=== PATIENT | male | born 1995 | race African-American/Black ===

== ENCOUNTER 2019-11-15 06:21 | Inpatient (IN) | payer OTHER ==
[~2019-11-15] VITALS: Ht 182.9 cm; Wt 69.4 kg
[2019-11-15 06:22] VITALS: BP 90/28
[2019-11-15] MEDS ORDERED: FOLIC ACID1 MG PO (06:27)
[2019-11-15] MEDS ORDERED: OXYCODONE HCL5 MG PO (06:27)
[2019-11-15] MEDS ORDERED: ZANAFLEX6 MG PO (06:28)
[2019-11-15] MEDS ORDERED: VITAMIN E1000 UNIT (06:29)
[2019-11-15] MEDS ORDERED: HYDREA 500 MG500 M1 PO (06:29)
[2019-11-15 07:13] LABS: CREATININE 1.1 mg/dL (0.7-1.3); POTASSIUM 4.2 mmol/L (3.5-5.1)
[2019-11-15 07:14] LABS: HEMOGLOBIN 9.5 gm/dL (14.0-18.0); MCH 30.6 pg (26.0-34.0); MCHC 33.8 g/dL (28.0-37.0); MCV 90.6 fL (80.0-100.0); PLATELET COUNT 344 thou/uL (150-400); RBC 3.09 mil/uL (4.50-6.00); RDW 18.8 % (10.5-14.5); WBC 21.2 thou/uL (4.0-11.0)
[2019-11-15 07:16] LABS: ABSOLUTE RETIC COUNT 0.2093 10^6/uL; OBSERVED RETIC COUNT 6.77 % (0.6-2.6)
[2019-11-15 07:19] LABS: ALBUMIN 4.3 g/dL (3.4-5.0); TOTAL BILIRUBIN 3.2 mg/dL (<0.1-1.0); TOTAL PROTEIN 7.2 g/dL (6.4-8.2)
[2019-11-15 07:47] LABS: ABSOLUTE NEUTROPHILS 15.7 thou/uL (1.4-8.2); ANISOCYTOSIS 1+; PLATELET ESTIMATE NORMAL
[2019-11-15 07:55] LABS: URINE BILIRUBIN NEGATIVE (Negative); URINE BLOOD NEGATIVE (Negative); URINE CLARITY CLEAR; URINE COLOR YELLOW; URINE GLUCOSE-RANDOM* NEGATIVE (Negative); URINE KETONES NEGATIVE (Negative); URINE LEUKOCYTES-REFLEX NEGATIVE (Negative); URINE NITRITE-REFLEX NEGATIVE (Negative); URINE PROTEIN (DIPSTICK) NEGATIVE (Negative)
[2019-11-15 08:11] LABS: AMP/METHAMP Negative (Negative); BARBITURATES Negative (Negative); BENZODIAZEPINES Negative (Negative); COCAINE Negative (Negative); METHADONE Negative (Negative); OPIATES POSITIVE (Negative); PCP Negative (Negative)
[2019-11-15 08:55] VITALS: BP 110/62
--- NOTE | 2019-11-15 09:00 | NUR ---
FIRST ATTEMPT TO CALL REPORT [id number]
--- NOTE | 2019-11-15 09:25 | NUR ---
Attempted to call report for patient. Hand off toll sent at 0850. 1st call attempt made approx 09:00 by Elisha HODGSON. Attmepted to give report at this time, told that RN not available. Asked for supervisor in charge. Charge stated she could not take report either. Placed on hold for several minutes, unable to reach staff. Called Oil Plant Operator to notify.
[2019-11-15 09:44] VITALS: BP 108/68
[2019-11-15 09:52] VITALS: BP 122/62
[2019-11-15 14:45] VITALS: BP 123/70
--- NOTE | 2019-11-15 19:45 | NUR ---
A/O, cooperative and pleasant. complains of generalized pain, pain medication given and worked. no n/v. afebrile. Assessment without abnormalities expect previously noted.
[2019-11-15 20:05] VITALS: BP 109/54
--- NOTE | 2019-11-16 02:08 | NUR ---
ASSUMED PT CARE AROUND 1914. AXOX4. INDEPENDENT WITH ADLs. PERSISTENT PAIN D/T SICKLE CELL CRISIS. PAIN TX PER MD ORDER. NO S/S ACUTE DISTRESS NOTED OR REPORTED AT THIS TIME. WILL CONT TO MONITOR FOR ANY CHANGES IN CONDITION.
[2019-11-16 05:10] VITALS: BP 133/74
[2019-11-16 06:04] LABS: HEMATOCRIT 23.5 % (42.0-52.0); HEMOGLOBIN 8.2 gm/dL (14.0-18.0); MCH 31.3 pg (26.0-34.0); MCHC 34.9 g/dL (28.0-37.0); MCV 89.7 fL (80.0-100.0); RBC 2.61 mil/uL (4.50-6.00); RDW 19.2 % (10.5-14.5); WBC 19.6 thou/uL (4.0-11.0)
[2019-11-16 08:54] VITALS: BP 122/56
--- NOTE | 2019-11-16 10:26 | NUR ---
ASSUMED CARE AT 0700. PT ALERT AND ORIENTED, C/O PAIN. VSSA/RA. TOLERATING DIET. IVF INFUSING WITHOUT ISSUES. WILL GIVE PRN PAIN MEDS ORDERED. WILL CONTINUE TO MONITOR
--- NOTE | 2019-11-16 10:37 | NUR ---
ASSUMED CARE AT 0700. PT ALERT AND ORIENTED. NO COMPLIANTS AT THIS TIME. VSS TEMP 100.4. RA. TOLERATING PO, ABD DISTENDED. BLOOD SUGARS HIGH. PIV SL. DRESSING DRY AND INTACT WITH MINIMAL DRAINAGE. WILL MONITOR AND CHANGE DRESSING TODAY. PRN MEDS GIVEN ORDERED. PT ABLE TO WALK WITH WALKER. WILL CONTINUE TO MONITOR
[2019-11-16 15:56] VITALS: BP 115/59
[2019-11-16 20:16] VITALS: BP 118/63
[2019-11-17 05:54] LABS: HEMATOCRIT 25.4 % (42.0-52.0); HEMOGLOBIN 8.9 gm/dL (14.0-18.0); MCH 31.3 pg (26.0-34.0); MCHC 34.9 g/dL (28.0-37.0); MCV 89.6 fL (80.0-100.0); RBC 2.83 mil/uL (4.50-6.00); RDW 19.5 % (10.5-14.5); WBC 17.7 thou/uL (4.0-11.0)
[2019-11-17 06:15] LABS: ALBUMIN 3.9 g/dL (3.4-5.0); CALCIUM 8.9 mg/dL (8.5-10.1); CREATININE 0.8 mg/dL (0.7-1.3); POTASSIUM 3.8 mmol/L (3.5-5.1); TOTAL BILIRUBIN 3.4 mg/dL (<0.1-1.0); TOTAL PROTEIN 7.2 g/dL (6.4-8.2)
[2019-11-17 06:21] VITALS: BP 115/71
--- NOTE | 2019-11-17 06:23 | NUR ---
patient aox4 makes needs known. patient calm and cooperative with care and meds.patient in bed awake at this time no s/s of pain or discomfort. will continue to monitor pain.
[2019-11-17 07:24] VITALS: BP 113/62
--- NOTE | 2019-11-17 09:43 | NUR ---
ASSUMED CARE AT 0700. PT ALERT AND ORIENTED, NOC RN STATES PT HASN'T SLEPT LAST NOC. VSSA/RA. NO COMPLAINTS AT THIS TIME. PIV INFUSING WITHOUT ISSUES. WILL MONITOR PAIN AND GIVE PRN PAIN MEDS ORDERED. PT IS UAL. WILL CONTINUE TO MONITOR
[2019-11-17 10:35] VITALS: BP 113/62
== END 2019-11-17 11:03 | disposition home or self-care (01) | DRG 812 ==
LOC: ER 06:21 → EROBS 08:32 → 4W 09:40
PROVIDERS: Emergency Medicine; ADMIT Hospitalist
DX: D57.00 Hb-SS disease with crisis, unspecified (principal); F12.90 Cannabis use, unspecified, uncomplicated; D72.829 Elevated white blood cell count, unspecified; E86.0 Dehydration; Z88.6 Allergy status to analgesic agent; Z88.8 Allergy status to other drugs, medicaments and biological substances; Z79.899 Other long term (current) drug therapy
CPT/HCPCS: 10040

== ENCOUNTER 2019-12-21 11:18 | Inpatient (IN) | payer OTHER ==
[~2019-12-21] VITALS: Ht 182.9 cm; Wt 70.3 kg
[~2019-12-21 11:18] MED LIST: FOLIC ACID1 MG PO; HYDREA 500 MG500 M1 PO; OXYCODONE HCL5 MG PO; VITAMIN E1000 UNIT; ZANAFLEX6 MG PO
[2019-12-21 12:07] LABS: CALCIUM 8.9 mg/dL (8.5-10.1); CREATININE 0.9 mg/dL (0.7-1.3); POTASSIUM 4.3 mmol/L (3.5-5.1)
[2019-12-21 12:10] LABS: ABSOLUTE NEUTROPHILS 4.5 thou/uL (1.4-8.2); ABSOLUTE RETIC COUNT 0.1985 10^6/uL; BASOPHILS 1.6 % (0.0-2.0); EOSINOPHILS 3.5 % (0.0-3.0); HEMATOCRIT 26.1 % (42.0-52.0); HEMOGLOBIN 9.2 gm/dL (14.0-18.0); LYMPHOCYTES 39.2 % (24.0-44.0); MCH 32.5 pg (26.0-34.0); MCHC 35.2 g/dL (28.0-37.0); MCV 92.4 fL (80.0-100.0); MONOCYTES 11.3 % (1.0-8.0); OBSERVED RETIC COUNT 7.03 % (0.6-2.6); PLATELET COUNT 327 thou/uL (150-400); POLYS 44.4 % (36.0-66.0); RBC 2.82 mil/uL (4.50-6.00); RDW 20.3 % (10.5-14.5); WBC 10.1 thou/uL (4.0-11.0)
[2019-12-21 12:12] LABS: TOTAL BILIRUBIN 1.9 mg/dL (0.2-1.0); TOTAL PROTEIN 6.9 g/dL (6.4-8.2)
[2019-12-21 13:12] LABS: ANISOCYTOSIS 2+
[2019-12-21 13:13] LABS: POLYCHROMASIA SLIGHT; TARGET CELLS OCCASIONAL
[2019-12-21 15:33] VITALS: BP 108/67
[2019-12-21 16:03] VITALS: BP 102/68
[2019-12-21 17:40] VITALS: BP 106/65
--- NOTE | 2019-12-21 18:01 | NUR ---
PT CAME UP FOR ER, AOX4, VSS. PT IS UP AD RYDER, TOLERATING DIET,IV MEDS GIVEN. PT RECEIVED DILUDID IN R FA IV. PT REPORTS HIS PAIN IS NOT CONTROLLED. PT RATES PAIN 8/10. NURSE EDUCATED PT KITCHEN SUPERVISOR LIGHT, URINAL AT BEDSIDE IN CASE. IV FLUIDS ARE RUNNING PER ORDER. WILL CONTINUE TO MONITOR.
[2019-12-21 19:05] VITALS: BP 107/61
[2019-12-22 04:05] VITALS: BP 106/53
--- NOTE | 2019-12-22 04:57 | NUR ---
RECEIVED CARE OF THIS PATIENT AT 1900. C/O PAIN. MED GIVEN. PAIN APPEARS TO BE DROPPING IN INTENSITY. PATIENT UP AD RYDER. SLEPT OFF AND ON DURING NIGHT.
[2019-12-22 05:57] LABS: HEMATOCRIT 24.8 % (42.0-52.0); HEMOGLOBIN 8.4 gm/dL (14.0-18.0); MCH 31.5 pg (26.0-34.0); MCHC 33.9 g/dL (28.0-37.0); MCV 92.9 fL (80.0-100.0); RBC 2.67 mil/uL (4.50-6.00); RDW 19.8 % (10.5-14.5); WBC 12.3 thou/uL (4.0-11.0)
[2019-12-22 07:30] VITALS: BP 98/61
--- NOTE | 2019-12-22 11:28 | NUR ---
ASSUMED CARE AT 0700, SHIFT ASSESSMENT DONE, MEDS GIVEN, REPORTED PAIN, PRN PAIN MEDS GIVEN WITH SOME RELIEF. UP AD RYDER, ROOM AIR. DISCHARGE ORDER RECEIVED, ANTICIPATING DC THIS AFTERNOON.
[2019-12-22 11:52] VITALS: BP 98/61
== END 2019-12-22 12:07 | disposition home or self-care (01) | DRG 812 ==
LOC: ER 11:18 → EROBS 15:16 → 4S 16:03
PROVIDERS: Physician Assistant; ADMIT Hospitalist; ATTEND Hospitalist
DX: D57.00 Hb-SS disease with crisis, unspecified (principal); E86.0 Dehydration; Z88.6 Allergy status to analgesic agent; Z88.8 Allergy status to other drugs, medicaments and biological substances; Z79.899 Other long term (current) drug therapy
CPT/HCPCS: 10195

== ENCOUNTER 2020-01-01 21:08 | Emergency (ER) | payer OTHER ==
[~2020-01-01] VITALS: Ht 182.9 cm; Wt 70.3 kg
[2020-01-01 23:42] LABS: HEMATOCRIT 26.7 % (42.0-52.0); HEMOGLOBIN 9.5 gm/dL (14.0-18.0); MCH 32.2 pg (26.0-34.0); MCHC 35.4 g/dL (28.0-37.0); PLATELET COUNT 344 thou/uL (150-400); RBC 2.94 mil/uL (4.50-6.00); RDW 18.5 % (10.5-14.5); WBC 10.5 thou/uL (4.0-11.0)
[2020-01-01 23:47] LABS: ABSOLUTE RETIC COUNT 0.2382 10^6/uL; OBSERVED RETIC COUNT 8.07 % (0.6-2.6)
[2020-01-01 23:56] LABS: CALCIUM 9.1 mg/dL (8.5-10.1); POTASSIUM 3.9 mmol/L (3.5-5.1)
[2020-01-02 00:03] LABS: ALBUMIN 4.2 g/dL (3.4-5.0); DIRECT BILIRUBIN 0.3 mg/dL (<0.1-0.2); TOTAL PROTEIN 6.9 g/dL (6.4-8.2)
[2020-01-02 00:10] LABS: ABSOLUTE NEUTROPHILS 3.9 thou/uL (1.4-8.2); ANISOCYTOSIS 2+
[2020-01-02 00:12] LABS: LARGE PLATELETS OCCASIONAL; NUCLEATED RBCS 3 /100WBC; POLYCHROMASIA 1+
[2020-01-02 01:37] VITALS: BP 104/56
== END 2020-01-02 01:40 | disposition home or self-care (01) ==
LOC: ER 21:08
PROVIDERS: Emergency Medicine
DX: D57.1 Sickle-cell disease without crisis (principal); Z88.5 Allergy status to narcotic agent; Z88.8 Allergy status to other drugs, medicaments and biological substances

== ENCOUNTER 2020-01-08 17:45 | Emergency (ER) | payer OTHER ==
[~2020-01-08] VITALS: Ht 182.9 cm; Wt 70.3 kg
[2020-01-08] MEDS ORDERED: XTAMPZA ER36 MG PO (17:56)
[2020-01-08 20:15] LABS: URINE BILIRUBIN NEGATIVE (Negative); URINE BLOOD NEGATIVE (Negative); URINE CLARITY CLEAR; URINE COLOR YELLOW; URINE GLUCOSE-RANDOM* NEGATIVE (Negative); URINE KETONES NEGATIVE (Negative); URINE LEUKOCYTES-REFLEX NEGATIVE (Negative); URINE NITRITE-REFLEX NEGATIVE (Negative); URINE PROTEIN (DIPSTICK) NEGATIVE (Negative); URINE SPECIFIC GRAVITY 1.015 (1.005-1.035); URINE UROBILINOGEN 0.2 E.U./dl (0.2-1.0)
[2020-01-08 20:24] LABS: AMP/METHAMP Negative (Negative); BARBITURATES Negative (Negative); BENZODIAZEPINES Negative (Negative); COCAINE Negative (Negative); METHADONE Negative (Negative); OPIATES POSITIVE (Negative); PCP Negative (Negative)
[2020-01-08 22:14] VITALS: BP 111/55
== END 2020-01-08 22:20 | disposition home or self-care (01) ==
LOC: ER 17:45
PROVIDERS: Emergency Medicine
DX: D57.00 Hb-SS disease with crisis, unspecified (principal); Z88.5 Allergy status to narcotic agent; Z88.8 Allergy status to other drugs, medicaments and biological substances; Z79.899 Other long term (current) drug therapy

== ENCOUNTER 2020-01-16 12:03 | Emergency (ER) | payer OTHER ==
[~2020-01-16] VITALS: Ht 182.9 cm; Wt 70.3 kg
[~2020-01-16 12:03] MED LIST changes: +XTAMPZA ER36 MG PO
[2020-01-16 12:31] LABS: HEMOGLOBIN 8.5 gm/dL (14.0-18.0)
[2020-01-16 12:35] LABS: ABSOLUTE RETIC COUNT 0.3111 10^6/uL; CALCIUM 8.6 mg/dL (8.5-10.1); HEMATOCRIT 24.2 % (42.0-52.0); MCH 31.4 pg (26.0-34.0); MCHC 34.9 g/dL (28.0-37.0); MCV 89.8 fL (80.0-100.0); OBSERVED RETIC COUNT 11.54 % (0.6-2.6); PLATELET COUNT 385 thou/uL (150-400); POTASSIUM 3.8 mmol/L (3.5-5.1); RDW 21.4 % (10.5-14.5); WBC 9.8 thou/uL (4.0-11.0)
[2020-01-16 12:57] LABS: ABSOLUTE NEUTROPHILS 5.6 thou/uL (1.4-8.2); ANISOCYTOSIS 2+; PLATELET ESTIMATE NORMAL
[2020-01-16 15:04] VITALS: BP 108/66
--- NOTE | 2020-01-18 07:49 | EKG ---
[facility] [address] [place] [address] ELECTROCARDIOGRAM REPORT Name: ASAF RAMOS Room #: DEP [facility].#: [id number] Admission: 01/16/20 Attend Phys: Discharge: 01/16/20 Date of : [birth year] Report #: [id number] THIS REPORT FOR: cc: LENCHO - Valentina family physician/PCP LENCHO - No family physician/PCP Pietro Gonsalez MD [facility] THIS REPORT FOR: //name// [facility] ED Test Date: 2020-01-16 Test Time: 12:33:27 Pat Name: ASAF RAMOS Department: Room: Gender: Pet Adoption Counselor: [facility] : 1995 Requested By: Anupama Morrison Order Number: [id number] MD: Pietro Gonsalez Measurements Intervals [place] Rate: 68 P: 51 ME: 160 QRS: 28 QRSD: 100 T: 22 QT: 409 QTc: 436 Interpretive Statements Sinus rhythm Early repolarization, normal No previous ECG available for comparison Electronically Signed On 01-18-2020 7:49:04 CDT by Pietro Gonsalez [email or web address] <ELECTRONICALLY SIGNED> By: Pietro Gonsalez MD, [facility] 01/18/20 0749 1233 1233 Pietro Gonsalez MD, [facility] /EPI
== END 2020-01-16 15:13 | disposition home or self-care (01) ==
LOC: ER 12:03
PROVIDERS: Nurse Practitioner Family
DX: D57.1 Sickle-cell disease without crisis (principal); G89.29 Other chronic pain; Z88.5 Allergy status to narcotic agent; Z79.899 Other long term (current) drug therapy

== ENCOUNTER 2020-01-18 14:46 | Emergency (ER) | payer OTHER ==
[~2020-01-18] VITALS: Ht 182.9 cm; Wt 72.6 kg
[2020-01-18 15:25] LABS: HEMATOCRIT 23.6 % (42.0-52.0); HEMOGLOBIN 8.2 gm/dL (14.0-18.0); MCH 30.8 pg (26.0-34.0); MCHC 34.6 g/dL (28.0-37.0); MCV 88.8 fL (80.0-100.0); PLATELET COUNT 320 thou/uL (150-400); RBC 2.66 mil/uL (4.50-6.00); RDW 20.5 % (10.5-14.5); WBC 9.9 thou/uL (4.0-11.0)
[2020-01-18 15:31] LABS: ABSOLUTE RETIC COUNT 0.2611 10^6/uL; OBSERVED RETIC COUNT 9.78 % (0.6-2.6)
[2020-01-18 15:34] LABS: ANION GAP 8 mmol/L (7-16); BUN 6 mg/dL (7-18); CALCIUM 8.5 mg/dL (8.5-10.1); CHLORIDE 108 mmol/L (98-107); CO2 27 mmol/L (21-32); CREATININE 0.9 mg/dL (0.7-1.3); GLUCOSE 101 mg/dL (74-106); SODIUM 143 mmol/L (136-145)
[2020-01-18 15:44] LABS: ALBUMIN 3.7 g/dL (3.4-5.0); SGOT 41 U/L (15-37); SGPT 43 U/L (30-65); TOTAL BILIRUBIN 2.5 mg/dL (0.2-1.0); TOTAL PROTEIN 6.5 g/dL (6.4-8.2); TROPONIN-I <0.06 ng/mL (<0.06)
[2020-01-18 16:05] LABS: ABSOLUTE NEUTROPHILS 5.4 thou/uL (1.4-8.2); ANISOCYTOSIS 2+; NUCLEATED RBCS 1 /100WBC; PLATELET ESTIMATE NORMAL
[2020-01-18 18:59] VITALS: BP 113/77
--- NOTE | 2020-01-19 07:40 | EKG ---
[facility] [address] [place] [address] ELECTROCARDIOGRAM REPORT Name: ASAF RAMOS Room #: DEP [facility].#: [id number] Admission: 01/18/20 Attend Phys: Discharge: 01/18/20 Date of : [birth year] Report #: [id number] THIS REPORT FOR: cc: LENCHO - Valentina family physician/PCP LENCHO - Valentina family physician/PCP Pietro Gonsalez MD [facility] THIS REPORT FOR: //name// [facility] ED Test Date: 2020-01-18 Test Time: 15:06:32 Pat Name: ASAF RAMOS Department: Room: Gender: Household Personal Assistant: [facility] : 1995 Requested By: Mahesh Long Order Number: [id number] MD: Pietro Gonsalez Measurements Intervals [place] Rate: 83 P: 54 MA: 163 QRS: 21 QRSD: 92 T: 16 QT: 386 QTc: 454 Interpretive Statements Sinus rhythm ST elev, probable normal early repol pattern Compared to ECG 01/16/2020 12:33:27 No significant change was found Electronically Signed On 01-19-2020 7:40:39 CDT by Pietro Gonsalez [email or web address] <ELECTRONICALLY SIGNED> By: Pietro Gonsalez MD, [facility] 01/19/20 0740 1506 1506 Pietro Gonsalez MD, [facility] /EPI
== END 2020-01-18 19:05 | disposition home or self-care (01) ==
LOC: ER 14:46
PROVIDERS: Physician Assistant
DX: D57.00 Hb-SS disease with crisis, unspecified (principal); Z79.899 Other long term (current) drug therapy; Z88.5 Allergy status to narcotic agent; Z88.8 Allergy status to other drugs, medicaments and biological substances

== ENCOUNTER 2020-01-29 12:19 | Emergency (ER) | payer OTHER ==
[~2020-01-29] VITALS: Ht 182.9 cm; Wt 70.3 kg
[2020-01-29 16:28] VITALS: BP 96/57
== END 2020-01-29 16:21 | disposition home or self-care (01) ==
LOC: ER 12:19
DX: D57.819 Other sickle-cell disorders with crisis, unspecified (principal); M79.651 Pain in right thigh; Z88.5 Allergy status to narcotic agent; Z91.013 Allergy to seafood; Z79.899 Other long term (current) drug therapy

== ENCOUNTER 2020-02-02 02:32 | Inpatient (IN) | payer OTHER ==
[2020-02-02] VITALS (8 sets, daily range): BP systolic 100–120; BP diastolic 52–72
[~2020-02-02] VITALS: Ht 182.9 cm; Wt 70.3 kg
[2020-02-02 02:59] LABS: HEMATOCRIT 22.5 % (42.0-52.0); HEMOGLOBIN 7.8 gm/dL (14.0-18.0); MCH 29.8 pg (26.0-34.0); MCHC 34.5 g/dL (28.0-37.0); MCV 86.5 fL (80.0-100.0); PLATELET COUNT 356 thou/uL (150-400); RBC 2.61 mil/uL (4.50-6.00); RDW 20.2 % (10.5-14.5); WBC 14.9 thou/uL (4.0-11.0)
[2020-02-02 03:07] LABS: ABSOLUTE RETIC COUNT 0.1944 10^6/uL; OBSERVED RETIC COUNT 7.46 % (0.6-2.6)
[2020-02-02 03:11] LABS: CALCIUM 8.4 mg/dL (8.5-10.1); POTASSIUM 3.9 mmol/L (3.5-5.1)
[2020-02-02 05:13] LABS: ABSOLUTE NEUTROPHILS 6.1 thou/uL (1.4-8.2); ANISOCYTOSIS 2+; NUCLEATED RBCS 1 /100WBC; POIKILOCYTOSIS 2+; SCHISTOCYTES FEW
[2020-02-02 05:14] LABS: PLATELET ESTIMATE NORMAL; POLYCHROMASIA 1+
--- NOTE | 2020-02-02 08:58 | NUR ---
Pt admitted from ED approx 0440 with Sickle cell crisis. A/OX4,VSS. C/o pain chest/back medicated per EMAR with some relief reported. Pt reports falling a week ago;fall safety reinforced and precautions implemented. Pt reminded to call for help before getting up. Has an abrassion on Right shoulder;cleansed and new dsg applied. IVF infusinf via Right wrist IV. Denies N/V on assessment.
--- NOTE | 2020-02-02 09:38 | EKG ---
[facility] [place] [address] ELECTROCARDIOGRAM REPORT Name: ASAF RAMOS Room #: 452- ADM IN M.R.#: [id number] Admission: 02/02/20 Attend Phys: Lacey López Discharge: Date of : [birth year] Report #: [id number] THIS REPORT FOR: cc: NO FAMILY PHYSICIAN or PCP NO FAMILY PHYSICIAN or PCP Pietro Gonsalez MD [facility] THIS REPORT FOR: //name// [facility] ED Test Date: 2020-02-02 Test Time: 03:07:18 Pat Name: ASAF RAMOS Department: Room: [facility] Gender: M Mail Carrier And Clerk: HARRY : 1995 Requested By: Andrei Corado Order Number: [id number] MD: Pietro Gonsalez Measurements Intervals [place] Rate: 84 P: 71 MT: 165 QRS: 37 QRSD: 96 T: 30 QT: 388 QTc: 459 Interpretive Statements Sinus rhythm ST elev, probable normal early repol pattern Compared to ECG 01/18/2020 15:06:32 No significant changes Electronically Signed On 02-02-2020 9:38:12 CDT by Pietro Gonsalez [email or web address] <ELECTRONICALLY SIGNED> By: Pietro Gonsalez MD, [facility] 02/02/20 0938 6 6 Pietro Gonsalez MD, [facility] /EPI
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
--- NOTE | 2020-02-02 12:30 | NUR ---
RD consult received for wt change and pt homeless, living in hotel. Admit with sickle cell crisis. Attempt to visit pt, resting, eyes closed and not participating in conversation. Shook head no when asked about wt loss and shook head no when asked if he ate breakfast. Wt records in [employer] show possible 5 lb loss since 10/2019=3% not signficant. BMI is 21, healthy. Will add Ensure Enlive 1x day until intake trends established and pt feeling up to conversation. Low nutrition risk
--- NOTE | 2020-02-02 14:20 | NUR ---
PT ADMITTED RELATED TO SICKLE CELL PAIN CRISIS, LEUKOCYTOSIS. CM REVIEWED CHART AND SPOKE WITH CARE TEAM. CM CALLED AND SPOKE WITH PT AT BEDSIDE THIS DAY. PT APPEARED TO BE A&O X4. CM ROLE INTRODUCED. PT INDICATED HE HAD BEEN STAYING IN A HOTEL WITH HIS SIG OTHER WITH NO STEPS TO ENTER AND NO STEPS INSIDE. 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 NO ASSISTIVE DEVICES. PT INDICATED HE SEES FLATCAR WHACKER JENNY LEE AT [facility]. HE INDICATED THAT HE HAD [place] MEDICAID AND IS PENDING FOR [place] MEDICAID. PT INDICATED HE PLANS TO RETURN TO HOTEL ONCE MEDICALLY STABLE. CM TO FOLLOW INDICATED WITH DC PLANNING.
--- NOTE | 2020-02-02 20:53 | NUR ---
Assumed pt care this am, pain is managed with medications partial relief noted and needed to be givne on the dot. IV fluids given and hydration encouranged. Pt is up ad barber, refused most of his meals and was on the bed for most of the shift. POC followed, endorsed tot he night nurse.
--- NOTE | 2020-02-03 02:58 | NUR ---
ASSUMED PT CARE AT APPROX 1915. PT IS A&O X4. VSS. IV IS IN LEFT FOREARM, FLUIDS RUNNING AT 125 MLS. PT COMPLAINS OF PAIN AT A 6 AND 9. PAIN MEDICATION ADMINISTERED. PT IS STEADY ON HIS FEET. PAIN MEDS ADMINISTERED. PT IS RESTING IN HIS BED. WILL CONTINUE TO MONITOR.
[2020-02-03 07:10] VITALS: BP 103/54
[2020-02-03 07:24] LABS: ABSOLUTE NEUTROPHILS 11.8 thou/uL (1.4-8.2); BASOPHILS 0.5 % (0.0-2.0); EOSINOPHILS 1.2 % (0.0-3.0); HEMATOCRIT 20.8 % (42.0-52.0); HEMOGLOBIN 7.2 gm/dL (14.0-18.0); LYMPHOCYTES 19.3 % (24.0-44.0); MCH 29.9 pg (26.0-34.0); MCHC 34.7 g/dL (28.0-37.0); MCV 86.3 fL (80.0-100.0); PLATELET COUNT 313 thou/uL (150-400); RBC 2.41 mil/uL (4.50-6.00); RDW 20.6 % (10.5-14.5); WBC 17.6 thou/uL (4.0-11.0)
[2020-02-03 07:47] LABS: CALCIUM 8.5 mg/dL (8.5-10.1); CREATININE 0.9 mg/dL (0.7-1.3); MAGNESIUM 1.8 mg/dL (1.8-2.4); POTASSIUM 3.8 mmol/L (3.5-5.1)
[2020-02-03 09:09] LABS: ALBUMIN 3.9 g/dL (3.4-5.0); DIRECT BILIRUBIN 0.4 mg/dL (<0.1-0.2); TOTAL BILIRUBIN 5.3 mg/dL (0.2-1.0); TOTAL PROTEIN 6.8 g/dL (6.4-8.2)
[2020-02-03 09:19] LABS: ANISOCYTOSIS 2+
[2020-02-03 09:20] LABS: POLYCHROMASIA OCCASIONAL
[2020-02-03 19:25] VITALS: BP 114/58
--- NOTE | 2020-02-03 20:23 | NUR ---
Assumed pt care this am. pain is better today trending down compared to yesterday, managed with medications partial relief is noted. IV fluids and medications are tolerated well. POC followed with no signs or verbalizations of distress. Endorsed to the night nurse. VS stable, seen by would care team.
--- NOTE | 2020-02-04 04:27 | NUR ---
Assumed pt care at 1900. A/OX4. Pt's Temp elevated at beginning of shift 101.7 medicated with Tylenol and effective 99.3. C/o pain non cardiac/abd medicated per EMAR with relief reported. Up with SBA/IV pole. IVF infusing via LFA w/o any problems. Wound picture of right shoulder taken and dressed with foam. Continent of B&B. Fall precauitons in place,reminded to call for help as needed.
[2020-02-04 06:12] LABS: ABSOLUTE RETIC COUNT 0.1941 10^6/uL; HEMATOCRIT 20.5 % (42.0-52.0); HEMOGLOBIN 7.1 gm/dL (14.0-18.0); MCH 30.1 pg (26.0-34.0); MCHC 34.4 g/dL (28.0-37.0); MCV 87.5 fL (80.0-100.0); OBSERVED RETIC COUNT 8.27 % (0.6-2.6); RBC 2.35 mil/uL (4.50-6.00); RDW 18.6 % (10.5-14.5); WBC 21.3 thou/uL (4.0-11.0)
[2020-02-04 06:41] LABS: ALBUMIN 3.9 g/dL (3.4-5.0); CALCIUM 8.8 mg/dL (8.5-10.1); POTASSIUM 3.9 mmol/L (3.5-5.1); TOTAL BILIRUBIN 6.4 mg/dL (0.2-1.0); TOTAL PROTEIN 7.2 g/dL (6.4-8.2)
[2020-02-04 07:55] VITALS: BP 104/60
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
[2020-02-04 12:02] LABS: URINE BILIRUBIN NEGATIVE (Negative); URINE BLOOD NEGATIVE (Negative); URINE CLARITY CLEAR; URINE COLOR YELLOW; URINE GLUCOSE-RANDOM* NEGATIVE (Negative); URINE KETONES NEGATIVE (Negative); URINE LEUKOCYTES-REFLEX NEGATIVE (Negative); URINE NITRITE-REFLEX NEGATIVE (Negative); URINE PROTEIN (DIPSTICK) NEGATIVE (Negative); URINE SPECIFIC GRAVITY <= 1.005 (1.005-1.035); URINE UROBILINOGEN 0.2 E.U./dl (0.2-1.0)
[2020-02-04 15:00] VITALS: BP 113/69
--- NOTE | 2020-02-04 15:16 | NUR ---
Assumed pt care at 7am.Assessment completed.vss. Pt has generalized bodyache related ss crisis.Pain shot given as ordered with relief.Dr Marcelino here,order noted.Piv unable to flush,iv team called for replacement.Urine collected and sent to lab as ordered.Pt in bed resting at present.Will continue to monitor.
[2020-02-04 19:34] VITALS: BP 105/65
--- NOTE | 2020-02-05 06:00 | NUR ---
Pt. rested quietly at intervals during the night when checked on during frequent rounds. He c/o generalized pain and pain meds given (see cpoe) with some relief noted. Up to the bathroom with standby assistance. Bed alarm is on.
[2020-02-05 06:11] LABS: MCH 30.5 pg (26.0-34.0); MCV 87.2 fL (80.0-100.0); RDW 18.3 % (10.5-14.5); WBC 17.6 thou/uL (4.0-11.0)
[2020-02-05 06:32] LABS: CALCIUM 8.5 mg/dL (8.5-10.1); CREATININE 0.9 mg/dL (0.7-1.3)
[2020-02-05 06:33] LABS: HEMATOCRIT 17.4 % (42.0-52.0); HEMOGLOBIN 6.1 gm/dL (14.0-18.0)
[2020-02-05 07:20] VITALS: BP 116/69
--- NOTE | 2020-02-05 15:16 | NUR ---
Pt in and out of bed to bathroom as needed. Assessment completed.vss.Pt hgb today was 6.[address] Dominguez and message left.Dr Marcelino notified on round and he said if pt needed blood transfusion,it will be taken care by Oncologist. Pain shot given q3h prn as ordered with relief.Pt in bed resting at present.Will continue to monitor.
--- NOTE | 2020-02-05 15:28 | NUR ---
PT'S PAIN STILL ISN'T WELL CONTROLLED AND CARE TEAM ARE CONTEMPLATING TRANSFUSING. IT IS ANTICIPATED THAT PT WILL LIKELY BE MEDICALLY STABLE TO DC HOME WITH NO NEEDS ONE MEDICALLY STABLE. SHOULD ANY DC NEEDS ARISE CM ABLE TO ASSIST.
[2020-02-05 19:43] VITALS: BP 106/59
--- NOTE | 2020-02-06 05:06 | NUR ---
PATIENT ALERT AND ORIENTED X4. UP WITH SBA IN ROOM. IVF INFUSING W/O COMPLICATION. NEW IV STARTED IN RIGHT HAND. MEDICATED WITH TYLENOL X2 DURING THE NIGHT FOR TEMP OF 99.9 AND 99.0 WITH GOOD RESULTS. GIVEN DILAUDID X1 AT TIME OF NOTE. WILL MONITOR. PLEASANT AND COOPERATIVE WITH CARE.
[2020-02-06 08:03] VITALS: BP 101/58
[2020-02-06 09:21] LABS: ABSOLUTE NEUTROPHILS 7.1 thou/uL (1.4-8.2); BASOPHILS 0.7 % (0.0-2.0); EOSINOPHILS 2.4 % (0.0-3.0); HEMATOCRIT 23.5 % (42.0-52.0); HEMOGLOBIN 7.5 gm/dL (14.0-18.0); LYMPHOCYTES 33.4 % (24.0-44.0); MCH 28.9 pg (26.0-34.0); MCHC 31.9 g/dL (28.0-37.0); MCV 90.5 fL (80.0-100.0); MONOCYTES 8.4 % (1.0-8.0); PLATELET COUNT 301 thou/uL (150-400); POLYS 55.1 % (36.0-66.0); RDW 19.5 % (10.5-14.5); WBC 12.9 thou/uL (4.0-11.0)
[2020-02-06 09:30] LABS: CALCIUM 8.6 mg/dL (8.5-10.1); CREATININE 0.7 mg/dL (0.7-1.3); POTASSIUM 3.5 mmol/L (3.5-5.1)
--- NOTE | 2020-02-06 14:35 | NUR ---
Assumed pt care at 7am.Assessment completed.vss.Pt requested for pain q3 for ss pain and given with relief.Dr Marcelino here,order noted.Pt up to br as needed. Pt tolerated meds and has good appetite.At 1438,pt transfered to [address] [place] [address] after report given to Maddy lemons.
--- NOTE | 2020-02-06 17:22 | NUR ---
Pt transferred from 4W this afternoon. Prn pain meds administered per pt request. Call light within reach. IVF infusing. Will continue to monitor.
[2020-02-06 17:46] VITALS: BP 117/58
[2020-02-06 20:00] VITALS: BP 120/62
--- NOTE | 2020-02-07 01:25 | NUR ---
PT CARE ASSUMED AT 1900.PT C/O GEN PAIN,MANAGED WITH MED.UP ADLIB IN HIS ROOM WITH A STEADY GAIT.DRSG ON HIS R SHOULDER CHANGED.PT ALERT AND COPERATIVE WITH CARE.IVF INFUSING ORDERED.PT PROGRESSING SLOWLY TO DC GOALS.CALL LIGHT WITHIN REACH.
[2020-02-07 04:43] VITALS: BP 109/60
[2020-02-07 05:45] LABS: MCH 30.4 pg (26.0-34.0); MCHC 33.8 g/dL (28.0-37.0); RBC 1.65 mil/uL (4.50-6.00); RDW 19.6 % (10.5-14.5); WBC 13.4 thou/uL (4.0-11.0)
[2020-02-07 05:54] LABS: HEMATOCRIT 14.8 % (42.0-52.0)
[2020-02-07 05:56] LABS: CALCIUM 8.8 mg/dL (8.5-10.1); CREATININE 0.9 mg/dL (0.7-1.3); POTASSIUM 3.3 mmol/L (3.5-5.1)
[2020-02-07 09:53] LABS: ABSOLUTE NEUTROPHILS 7.2 thou/uL (1.4-8.2); EOSINOPHILS 3.6 % (0.0-3.0); RDW 19.6 % (10.5-14.5)
[2020-02-07 09:54] LABS: BASOPHILS 0.8 % (0.0-2.0); LYMPHOCYTES 29.7 % (24.0-44.0); MCH 30.7 pg (26.0-34.0); MCHC 33.7 g/dL (28.0-37.0); MCV 90.9 fL (80.0-100.0); MONOCYTES 9.1 % (1.0-8.0); PLATELET COUNT 390 thou/uL (150-400); POLYS 56.8 % (36.0-66.0); RBC 1.75 mil/uL (4.50-6.00); WBC 12.6 thou/uL (4.0-11.0)
[2020-02-07 09:59] LABS: HEMATOCRIT 15.9 % (42.0-52.0)
[2020-02-07 10:00] LABS: HEMOGLOBIN 5.4 gm/dL (14.0-18.0)
[2020-02-07 10:13] VITALS: BP 109/64
[2020-02-07 10:29] VITALS: BP 101/57; BP 103/61
[2020-02-07 14:49] LABS: HEMATOCRIT 17.4 % (42.0-52.0); HEMOGLOBIN 6.4 gm/dL (14.0-18.0)
[2020-02-07 15:08] LABS: ALBUMIN 2.9 g/dL (3.4-5.0); CALCIUM 8.5 mg/dL (8.5-10.1); CREATININE 0.8 mg/dL (0.7-1.3); POTASSIUM 3.7 mmol/L (3.5-5.1); TOTAL BILIRUBIN 2.2 mg/dL (0.2-1.0); TOTAL PROTEIN 6.4 g/dL (6.4-8.2)
[2020-02-07 17:35] VITALS: BP 105/67
--- NOTE | 2020-02-07 18:02 | NUR ---
PT A&OX4. AMBULATES SELF IN ROOM. IV INTACT IN L FA AND R HAND. 1 UNIT PRBC TRANSFUSED TODAY HGB 6.4, HCT 17.4. CRITICAL LAB CALLED TO . TOERATING IV PAIN MED. CALL LIGHT W/I REACH. WILL CONT POC.
[2020-02-07 19:06] VITALS: BP 90/53
--- NOTE | 2020-02-07 22:13 | NUR ---
ASSESSMENT COMPLETED. PLEASANT GENTLEMAN. OBSERVED EATING SOME MCDONALDS. HE IS UP AD RYDER IN ROOM. IV FLUIDS INFUSING. CONTINUES ON THE IVP PAIN MEDS WELL THE TIMED OXYCODONE. PT PAIN IS MOSTLY IN HIS BACK, RATING IT AT AROUND 6/10. PT IS AFEBRILE.REMAINS ON ROOM AIR-SATTING OKAY.VOIDING OKAY.PT REFUSED HIS LOVENOX SHOT. I PROVIDED BEDSIDE EDUCATION AND HE EXPRESSED UNDERSTANDING. PT ALSO DOES NOT WANT SCDS.R SHOULDER WITH FOAM DRSG INTACT.WILL CONTINUE WITH POC TILL EOS.
[2020-02-08 07:51] LABS: MCH 31.4 pg (26.0-34.0); MCHC 33.8 g/dL (28.0-37.0); MCV 92.7 fL (80.0-100.0); RBC 1.99 mil/uL (4.50-6.00); RDW 19.5 % (10.5-14.5); WBC 10.1 thou/uL (4.0-11.0)
[2020-02-08 08:15] LABS: HEMATOCRIT 18.5 % (42.0-52.0); HEMOGLOBIN 6.2 gm/dL (14.0-18.0)
[2020-02-08 09:42] LABS: CALCIUM 8.7 mg/dL (8.5-10.1); CREATININE 0.9 mg/dL (0.7-1.3); POTASSIUM 3.8 mmol/L (3.5-5.1)
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
[2020-02-08] MEDS ORDERED: LEVAQUIN 500 M500 M3 PO (12:25)
--- NOTE | 2020-02-08 14:00 | NUR ---
DC ORDERS RECEIVED. IV REMOVED FROM L FA AND R HAND. DC INSTRUCTIONS AND SCRIPTS REVIEWED WITH PT. PT ESCORTED TO ED ENTRANCE.
--- NOTE | 2020-02-08 16:31 | HC ---
[facility] [address] [place] [address] CONSULTATION Name: ASAF RAMOS Room #: 441-P [facility] IN M.R.#: [id number] Admission: 02/02/20 Attend Phys: Lacey López Discharge: 02/08/20 Date of : [birth year] Report #: [id number] THIS REPORT FOR: cc: NO FAMILY PHYSICIAN or PCP NO FAMILY PHYSICIAN or PCP Jolene Caro MD ~ CC: Lacey López NO PCP DATE OF SERVICE: 02/07/2020 SUBJECTIVE: Still has pain in his legs. His chest pain resolved. Denies fever. OBJECTIVE: VITAL SIGNS: Blood pressure 109/64, heart rate is 94, temperature 98.8, respirations 18, pulse ox is 98% on 2 liters of oxygen by nasal cannula. NECK: Supple. HEART: Normal S1, S2. LUNGS: Clear. ABDOMEN: Soft. EXTREMITIES: No edema. MENTAL STATUS: Alert, awake. LABORATORY DATA: Hemoglobin is 5.0, white count 13.4, platelets 393. Chest x-ray, no acute infiltrate. ASSESSMENT AND PLAN: 1. Anemia. Transfuse 1 unit of packed red blood cells. 2. Sickle cell pain crisis, gradually getting better. Agree with management. <ELECTRONICALLY SIGNED> By: Dayna Collazo MD 02/08/20 1631 [id number] [id number] Jolene Caro MD /nt
== END 2020-02-08 14:26 | disposition home or self-care (01) | DRG 812 ==
LOC: ER 02:32 → 4W 04:08 → EROBS 04:08 → 4W 04:35 → 4S 02-06 14:47
PROVIDERS: Emergency Medicine; Hospitalist; Internal Medicine Hematology & Oncology; Nurse Practitioner; ADMIT Hospitalist; ATTEND Hospitalist
PROC: 30233N1 Transfusion of Nonautologous Red Blood Cells into Peripheral Vein, Percutaneous Approach (ICD-10-PCS; principal; 2020-02-07)
DX: D57.00 Hb-SS disease with crisis, unspecified (principal); D72.829 Elevated white blood cell count, unspecified; D63.8 Anemia in other chronic diseases classified elsewhere; R65.10 Systemic inflammatory response syndrome (SIRS) of non-infectious origin without acute organ dysfunction; Z88.6 Allergy status to analgesic agent; Z88.8 Allergy status to other drugs, medicaments and biological substances; Z79.899 Other long term (current) drug therapy
CPT/HCPCS: 10040; 10195

== ENCOUNTER 2020-02-11 12:54 | Emergency (ER) | payer OTHER ==
[~2020-02-11] VITALS: Ht 188 cm; Wt 71.7 kg
[~2020-02-11 12:54] MED LIST changes: +LEVAQUIN 500 M500 M3 PO
[2020-02-11 14:14] LABS: ABSOLUTE RETIC COUNT 0.2136 10^6/uL; HEMATOCRIT 26.7 % (42.0-52.0); HEMOGLOBIN 8.8 gm/dL (14.0-18.0); MCH 31.3 pg (26.0-34.0); MCHC 33.1 g/dL (28.0-37.0); MCV 94.4 fL (80.0-100.0); OBSERVED RETIC COUNT 7.55 % (0.6-2.6); PLATELET COUNT 699 thou/uL (150-400); RBC 2.83 mil/uL (4.50-6.00); RDW 21.7 % (10.5-14.5); WBC 9.4 thou/uL (4.0-11.0)
[2020-02-11 14:20] LABS: CALCIUM 9.7 mg/dL (8.5-10.1); CREATININE 0.8 mg/dL (0.7-1.3); POTASSIUM 4.8 mmol/L (3.5-5.1)
[2020-02-11 14:26] LABS: ALBUMIN 3.7 g/dL (3.4-5.0); TOTAL BILIRUBIN 1.1 mg/dL (0.2-1.0)
[2020-02-11 14:51] LABS: ABSOLUTE NEUTROPHILS 4.3 thou/uL (1.4-8.2); ANISOCYTOSIS 2+; NUCLEATED RBCS 3 /100WBC
[2020-02-11 14:52] LABS: POLYCHROMASIA 1+
[2020-02-11 14:54] LABS: HYPOCHROMASIA 1+
[2020-02-11 15:09] LABS: URINE BILIRUBIN NEGATIVE (Negative); URINE BLOOD TRACE (Negative); URINE CLARITY CLEAR; URINE COLOR YELLOW; URINE GLUCOSE-RANDOM* NEGATIVE (Negative); URINE KETONES NEGATIVE (Negative); URINE LEUKOCYTES-REFLEX NEGATIVE (Negative); URINE NITRITE-REFLEX NEGATIVE (Negative); URINE PROTEIN (DIPSTICK) NEGATIVE (Negative); URINE SPECIFIC GRAVITY 1.015 (1.005-1.035); URINE UROBILINOGEN 0.2 E.U./dl (0.2-1.0)
[2020-02-11 16:20] VITALS: BP 103/59
== END 2020-02-11 16:21 | disposition home or self-care (01) ==
LOC: ER 12:54
PROVIDERS: Emergency Medicine
DX: D57.1 Sickle-cell disease without crisis (principal); M54.9 Dorsalgia, unspecified; M79.604 Pain in right leg; Z79.2 Long term (current) use of antibiotics; Z79.899 Other long term (current) drug therapy; Z88.8 Allergy status to other drugs, medicaments and biological substances; Z88.5 Allergy status to narcotic agent; Z91.018 Allergy to other foods

== ENCOUNTER 2020-03-01 17:13 | Emergency (ER) | payer OTHER ==
[~2020-03-01] VITALS: Ht 182.9 cm; Wt 70.3 kg
[2020-03-01 19:14] LABS: ABSOLUTE NEUTROPHILS 4.3 thou/uL (1.4-8.2); BASOPHILS 1.5 % (0.0-2.0); EOSINOPHILS 6.8 % (0.0-3.0); HEMATOCRIT 28.2 % (42.0-52.0); HEMOGLOBIN 10.3 gm/dL (14.0-18.0); LYMPHOCYTES 38.7 % (24.0-44.0); MCH 32.3 pg (26.0-34.0); MCHC 36.4 g/dL (28.0-37.0); MCV 88.7 fL (80.0-100.0); MONOCYTES 10.9 % (1.0-8.0); PLATELET COUNT 280 thou/uL (150-400); POLYS 42.1 % (36.0-66.0); RBC 3.18 mil/uL (4.50-6.00); WBC 10.2 thou/uL (4.0-11.0)
[2020-03-01 19:18] LABS: CALCIUM 8.6 mg/dL (8.5-10.1); CREATININE 0.9 mg/dL (0.7-1.3); POTASSIUM 3.8 mmol/L (3.5-5.1)
[2020-03-01 19:19] LABS: ABSOLUTE RETIC COUNT 0.1799 10^6/uL; OBSERVED RETIC COUNT 5.48 % (0.6-2.6)
[2020-03-01 19:25] LABS: ALBUMIN 3.9 g/dL (3.4-5.0)
[2020-03-01 21:45] VITALS: BP 99/60
== END 2020-03-01 21:45 | disposition home or self-care (01) ==
LOC: ER 17:13
PROVIDERS: Emergency Medicine
DX: D57.00 Hb-SS disease with crisis, unspecified (principal); Z79.899 Other long term (current) drug therapy; Z88.8 Allergy status to other drugs, medicaments and biological substances; Z88.5 Allergy status to narcotic agent

== ENCOUNTER 2020-03-09 19:05 | Emergency (ER) | payer OTHER ==
[~2020-03-09] VITALS: Ht 182.9 cm; Wt 70.3 kg
[2020-03-09 19:33] LABS: BASOPHILS 1.2 % (0.0-2.0); EOSINOPHILS 1.8 % (0.0-3.0); HEMATOCRIT 25.7 % (42.0-52.0); HEMOGLOBIN 8.9 gm/dL (14.0-18.0); LYMPHOCYTES 39.9 % (24.0-44.0); MCH 30.3 pg (26.0-34.0); MCHC 34.5 g/dL (28.0-37.0); MCV 87.8 fL (80.0-100.0); MONOCYTES 10.3 % (1.0-8.0); PLATELET COUNT 268 thou/uL (150-400); POLYS 46.8 % (36.0-66.0); RBC 2.93 mil/uL (4.50-6.00); RDW 20.3 % (10.5-14.5); WBC 14.9 thou/uL (4.0-11.0)
[2020-03-09 19:40] LABS: CREATININE 0.8 mg/dL (0.7-1.3); POTASSIUM 3.5 mmol/L (3.5-5.1)
[2020-03-09 19:46] LABS: ALBUMIN 4.2 g/dL (3.4-5.0); DIRECT BILIRUBIN 0.4 mg/dL (<0.1-0.2); TOTAL BILIRUBIN 2.4 mg/dL (0.2-1.0); TOTAL PROTEIN 7.1 g/dL (6.4-8.2)
[2020-03-09 20:48] LABS: URINE BILIRUBIN NEGATIVE (Negative); URINE BLOOD NEGATIVE (Negative); URINE CLARITY CLEAR; URINE COLOR YELLOW; URINE GLUCOSE-RANDOM* NEGATIVE (Negative); URINE KETONES NEGATIVE (Negative); URINE LEUKOCYTES-REFLEX NEGATIVE (Negative); URINE NITRITE-REFLEX NEGATIVE (Negative); URINE PROTEIN (DIPSTICK) NEGATIVE (Negative); URINE UROBILINOGEN 0.2 E.U./dl (0.2-1.0)
[2020-03-09 20:53] LABS: ABSOLUTE RETIC COUNT 0.2633 10^6/uL; OBSERVED RETIC COUNT 9.17 % (0.6-2.6)
[2020-03-09 20:57] LABS: AMP/METHAMP Negative (Negative); BARBITURATES Negative (Negative); BENZODIAZEPINES Negative (Negative); COCAINE Negative (Negative); METHADONE Negative (Negative); OPIATES Negative (Negative); PCP Negative (Negative)
[2020-03-09 23:00] VITALS: BP 110/70
== END 2020-03-09 23:00 | disposition home or self-care (01) ==
LOC: ER 19:05
PROVIDERS: Emergency Medicine
DX: D57.1 Sickle-cell disease without crisis (principal); M54.6 Pain in thoracic spine; M79.604 Pain in right leg; R11.0 Nausea; Z79.899 Other long term (current) drug therapy; Z88.8 Allergy status to other drugs, medicaments and biological substances; Z88.5 Allergy status to narcotic agent; Z91.018 Allergy to other foods

== ENCOUNTER 2020-03-13 02:45 | Inpatient (IN) | payer OTHER, MEDICAID ==
[~2020-03-13] VITALS: Ht 182.9 cm; Wt 70.3 kg
[2020-03-13 02:47] VITALS: BP 122/71
[2020-03-13 05:46] LABS: HEMATOCRIT 25.4 % (42.0-52.0); HEMOGLOBIN 9.1 gm/dL (14.0-18.0); MCH 31.1 pg (26.0-34.0); MCHC 35.7 g/dL (28.0-37.0); MCV 87.3 fL (80.0-100.0); PLATELET COUNT 282 thou/uL (150-400); RBC 2.91 mil/uL (4.50-6.00); RDW 21.2 % (10.5-14.5)
[2020-03-13 05:53] LABS: ABSOLUTE RETIC COUNT 0.2408 10^6/uL; OBSERVED RETIC COUNT 8.02 % (0.6-2.6)
[2020-03-13 06:02] LABS: CALCIUM 9.2 mg/dL (8.5-10.1); CREATININE 0.7 mg/dL (0.7-1.3)
[2020-03-13 06:06] LABS: ALBUMIN 4.2 g/dL (3.4-5.0); TOTAL BILIRUBIN 2.7 mg/dL (0.2-1.0); TOTAL PROTEIN 7.3 g/dL (6.4-8.2)
[2020-03-13 06:47] VITALS: BP 97/47
--- NOTE | 2020-03-13 07:05 | NUR ---
TRIED TO CALL REPORT, NO ANSWER
[2020-03-13 07:18] LABS: ABSOLUTE NEUTROPHILS 9.7 thou/uL (1.4-8.2); ANISOCYTOSIS 2+; ATYPICAL LYMPHS 2 %; NUCLEATED RBCS 2 /100WBC; PLATELET ESTIMATE NORMAL; POIKILOCYTOSIS 2+
[2020-03-13 07:20] LABS: POLYCHROMASIA 1+; TARGET CELLS FEW
[2020-03-13 07:21] VITALS: BP 100/51
[2020-03-13 10:00] VITALS: BP 131/67
--- NOTE | 2020-03-13 13:36 | NUR ---
PT CARE ASSUMED AT 0730 FROM ER. REPORT GIVEN FROM GOKUL JHAVERI. PT ADMITTE WITH A SICKEL CELL CRISIS 04/02 PAIN. ADMISSION COMPLETED. ORDERS IMPLEMENTED. PT SETTLED IN THE ROOM. HEATING APPLIED AND ROOM DARK. FIELD STICK REMOVED AND NEW IV PLACED. IV WITH NO REDNESS OR EDEMA, FLUIDS INFUSING. PT IS WEAK TO THE LEGS AND FALL PROTOCOL INITIATED. CALL LIGHT IN REACH. WILL CONTINUE TO MONITOR.
[2020-03-13 19:20] VITALS: BP 130/85
--- NOTE | 2020-03-14 02:35 | NUR ---
ASSUMED PT CARE AROUND 1900. A&OX4. PT C/O PAIN MOSTLY IN HIS BILATERAL THIGHS. PRN DILAUDID GIVEN FOR PAIN. PT ALSO C/O NAUSEA; ZOFRAN GIVEN. IVF INFUSING ORDERED. PT HAS PERIODS OF EXCRUCIATING PAIN, CAUSING HIM TO MOAN AND BECOME RESTLESS IN THE BED. IN ADDITION TO PAIN MEDICATION, HEATING PAD AND BLANKETS WRAPPED AROUND THIGHS TO HELP WITH PAIN CONTROL. PT SLEEPS IN BETWEEN DOSES OF DIALUDID. NOT PROGRESSING WELL TOWARD POC GOALS PAIN IS NOT CONSISTENTLY CONTROLLED. WILL CONTINUE TO MONITOR FURTHER.
[2020-03-14 05:42] LABS: HEMOGLOBIN 8.7 gm/dL (14.0-18.0); MCHC 34.6 g/dL (28.0-37.0); RBC 2.87 mil/uL (4.50-6.00)
[2020-03-14 05:46] LABS: HEMATOCRIT 25.1 % (42.0-52.0); MCH 30.3 pg (26.0-34.0); MCV 87.4 fL (80.0-100.0); RDW 21.3 % (10.5-14.5); WBC 21.4 thou/uL (4.0-11.0)
[2020-03-14 07:39] VITALS: BP 131/80
--- NOTE | 2020-03-14 15:34 | NUR ---
PT ADMITTED RELATED TO SICKLE CELL PAIN CRISIS. CM REVIEWED CHART AND SPOKE WITH CARE TEAM. PT IS FAMILIAR TO CM FROM PREVIOUS ADMISSION. PT DISCHARGED HOME TO SELF CARE 02/08/20. CM HAD ATEMPTED PC TO PT'S ROOM THIS AFTERNOON, PT ANSWERED BUT WASN'T RESPONDING TO CM. PT MAY HAVE BEEN FALLING ASLEEP. UPON LAST ADMISSION PT INDICATED HE HAD BEEN STAYING IN A HOTEL WITH HIS SIG OTHER WITH NO STEPS TO ENTER AND NO STEPS INSIDE. 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 NO ASSISTIVE DEVICES. PT INDICATED HE SEES WATER WELL DRILLER JENNY LEE AT [facility]. HE INDICATED THAT HE HAD [place] MEDICA[place] AND IS PENDING FOR [place] MEDICAID. PT INDICATED HE PLANS TO RETURN TO HOTEL ONCE MEDICALLY STABLE. CM TO FOLLOW INDICATED WITH DC PLANNING.
--- NOTE | 2020-03-14 19:42 | NUR ---
PT HAS RESTED IN BED ALL SHIFT. TAKES PRN PAIN MED PO AND IV PUSH. GIRLFRIEND AT BEDSIDE. PT HAS POOR APPETITE, IS CONT OF B&b. AMBULATES WITH STEADY GAIT TO BATHBOOM. PT HAS IV FLUIDS INFUSING THROUGH L FA IV ACSESS PT KEEPS LAYING ON AND TWISTING TUBING. IV MACHINE KEEPS BEEPING. EDUCATED ON KEEPING ARM STRAIGHT ALSO PUT COBAN AROUND. PT IS PLEASANT AND COOPERATIVE WITH CARE.
[2020-03-14 20:20] VITALS: BP 144/61
[2020-03-14 23:08] VITALS: BP 125/77
--- NOTE | 2020-03-15 03:41 | NUR ---
Patient transfered from for fever. Blood cultures drawn. Antigen negative, PCR pending.Patient instructed on urine specimen for UA. Febrile. Hydromorphone given for sickle cell pain with some relief.
[2020-03-15 03:49] VITALS: BP 119/80
[2020-03-15 07:17] VITALS: BP 116/78
--- NOTE | 2020-03-15 10:48 | NUR ---
SW reviewed chart and spoke with nursing. Pt was transferred to from and placed in Enhanced Isolation to r/o COVID-19. Pt is febrile. Pt not requiring O2. Awaiting COVID test results at this time. [facility] is following to assist as needed with discharge planning.
[2020-03-15 15:40] VITALS: BP 111/70
--- NOTE | 2020-03-15 16:59 | NUR ---
ASSUMED PATIENT CARE AT 0700. ALERT. NOT ANSWER ANY QUESTIONS. LOOK LIKE TENSE AND PAIN. PAIN MEDS GIVEN. ACETAMINOPHEN GIVEN FOR FEVER. PATIENT REFUSED EAT. COVID NEGATIVE. TRANSFERED TO 9.
[2020-03-15 17:00] VITALS: BP 111/65
--- NOTE | 2020-03-15 17:35 | NUR ---
ASSUMED PT CARE UPON TRANSFER AT 0430. PT IS ALERT BUT COMPLETELY NON-VERBAL. PT LAYING ON STOMACH, REFUSES TO TURN OVER. PT PULSE ELEVATED, TEMPERATURE DECREASED SINCE TRANSFER FROM 38.9 TO 37.7. WILL CONTINUE TO MONITOR.
[2020-03-15 19:15] VITALS: BP 113/65
[2020-03-15 21:50] LABS: URINE BILIRUBIN NEGATIVE (Negative); URINE BLOOD 3+ (Negative); URINE CLARITY CLEAR; URINE COLOR YELLOW; URINE GLUCOSE-RANDOM* NEGATIVE (Negative); URINE KETONES NEGATIVE (Negative); URINE LEUKOCYTES-REFLEX NEGATIVE (Negative); URINE NITRITE-REFLEX NEGATIVE (Negative); URINE PROTEIN (DIPSTICK) 2+ (Negative); URINE UROBILINOGEN 0.2 E.U./dl (0.2-1.0)
[2020-03-15 22:06] LABS: BACTERIA-REFLEX 1-9 Few /HPF (None Seen); CASTS None Seen /LPF (None Seen); CRYSTALS None Seen /LPF (None Seen); SQUAMOUS None Seen /LPF (0-3); URINE RBC 0-2 Rare /HPF (0-2); URINE WBC-REFLEX None Seen /HPF (0-5)
--- NOTE | 2020-03-16 04:15 | NUR ---
Assumed pt care at 1900. Pt's awake,alert but not verbalizing any words on initial encounter other than grabbing his shagufta lower extremities and frowning/moaning medicated per EMAR for pain and observed sleeping afterwards. Pt not using call light to call for help,bed alarm goes off instead pt assisted to the bathroom with gaitbelt. UA obtained via clean catch at beginning of shift and not indicated. Char Marie notified about pt's status no new orders given f/u with MD in AM and continue to monitor pt. Pt's more alert and answering to yes/no questions sitting up eating icecream at this time. Pt has had adequate PO intake. IVF infusing via LFA w/o problems. Fall precautions in place.
[2020-03-16 04:43] VITALS: BP 120/50
[2020-03-16 06:19] LABS: MCH 29.9 pg (26.0-34.0); RBC 2.22 mil/uL (4.50-6.00); RDW 18.9 % (10.5-14.5); WBC 18.5 thou/uL (4.0-11.0)
[2020-03-16 06:31] LABS: HEMOGLOBIN 6.6 gm/dL (14.0-18.0)
[2020-03-16 06:33] LABS: HEMATOCRIT 19.6 % (42.0-52.0)
[2020-03-16 08:40] VITALS: BP 95/58
[2020-03-16 11:11] VITALS: BP 98/51
[2020-03-16 13:30] VITALS: BP 100/64
[2020-03-16 13:50] VITALS: BP 100/64
--- NOTE | 2020-03-16 16:15 | NUR ---
PT DUE TO GET 1 UNIT OF BLOOD, [place] HAS FEVER, HOLDING TRANSFUSION UNTIL FEVER BREAKS PER DOCTOR ON FLOOR TODAY. UNABLE TO GIVE BLOOD AND WILL SEND BACK TO LAB TO DISPOSE. PATIENT CONTINUES TO HAVE FEVER. PAGED DOCTOR AND AWAITING ORDERS.
[2020-03-16 19:25] VITALS: BP 109/70
[2020-03-16 20:13] LABS: ALBUMIN 3.2 g/dL (3.4-5.0); DIRECT BILIRUBIN 0.7 mg/dL (<0.1-0.2); TOTAL BILIRUBIN 4.2 mg/dL (0.2-1.0); TOTAL PROTEIN 5.9 g/dL (6.4-8.2)
--- NOTE | 2020-03-17 00:47 | NUR ---
Assumed pt care at 1900. Pt's A/OX3,Temp 100.7 at shift change 100.7, rechecked and 99.9 medicated with Tylenol and came down to 99.2. C/o pain to lower back medicated per EMAR with relief reported. Pending blood transfusion d/t fever Regional Business Manager Cynthia notified; ordered to wait and recheck temp before proceeding with POC. Pt resting quietly in bed. New IV placed on RFA IVF infusing w/o problems
[2020-03-17 05:27] VITALS: BP 98/55
[2020-03-17 06:06] LABS: MCH 29.2 pg (26.0-34.0); MCHC 33.3 g/dL (28.0-37.0); MCV 87.7 fL (80.0-100.0); PLATELET COUNT 160 thou/uL (150-400); RDW 19.4 % (10.5-14.5); WBC 25.5 thou/uL (4.0-11.0)
[2020-03-17 06:16] LABS: HEMATOCRIT 16.7 % (42.0-52.0); HEMOGLOBIN 5.6 gm/dL (14.0-18.0)
[2020-03-17 07:02] LABS: CALCIUM 8.2 mg/dL (8.5-10.1); POTASSIUM 3.2 mmol/L (3.5-5.1)
[2020-03-17 07:18] VITALS: BP 86/48
--- NOTE | 2020-03-17 07:49 | NUR ---
Assumed pt care at 7am.Pt in bed sleeping but arousable.Assessment completed. bp this am was 86/48,Dr López notified,order noted.Pt will be given 1 unit of prbc this am.No verbal c/o.Will continue to monitor.
--- NOTE | 2020-03-17 08:21 | HC ---
[facility] [address] [place] [address] CONSULTATION Name: ASAF RAMOS Room #: 459-P ADM IN M.R.#: [id number] Admission: 03/13/20 Attend Phys: Randy Rutledge MD Discharge: Date of : 94 Report #: [id number] THIS REPORT FOR: cc: FAM - No family physician/PCP FAM - No family physician/PCP Arturo Canales MD ~ CC: Clarissa Farias [facility] physician/PCP Lacey Kovacs MD DATE OF SERVICE: 03/16/2020 REQUESTING PHYSICIAN: Dr. López. REASON FOR CONSULTATION: History of sickle cell. HISTORY OF PRESENT ILLNESS: The patient is a very pleasant 24-year-old -Hungarian male who I met back in January, who has a history of sickle cell anemia, who moved from [place] to the [facility] in September 2019. 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 When he was last seen, he has been admitted without a fever, he did have sickle cell crisis. Recently, he was developing his typical shoulder joint long bone pain and came to the Emergency Room. Here, he has had fevers to 103, 102, and then last night I think it is as high as 101. No localizing symptoms. He denies any recent headache teeth pain, gum pain, sinus difficulty, diarrhea, shortness of air, cough, wheezing, stridor, skin infection. He also tells me that his family has been healthy. He has been COVID tested negative. His bilirubin on this admit was around 2.6. Note in the past it had been up to 6. Hemoglobin has dropped; it was a bit lower than usual. White count is about 18,000. The patient has been having pain issues. Also, when he was here last, he had a, I think a skating board accident and that has healed well. PAST HISTORY: Notable for the sickle cell anemia and he reports getting vaccinations. 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 He has a and children at home. FAMILY HISTORY: Noncontributory. MEDICATIONS: Currently include oxycodone 30 b.i.d., p.r.n. Tylenol, p.r.n. hydromorphone, also added folic acid. PHYSICAL EXAMINATION: [facility] [address] [place] [address] CONSULTATION Name: ASAF RAMOS Room #: 459-P ADM IN .R.#: [id number] Admission: 03/13/20 Attend Phys: Randy Rutledge MD Discharge: Date of : 94 Report #: [id number] GENERAL: The patient appears his stated age. VITAL SIGNS: Height is 6 feet, 182.9 cm, weight 155 pounds or 70.3 kilograms. Temperature this morning was 101.5, pulse is 115, blood pressure 120/50, O2 sat 95%. NEUROLOGIC: Face is symmetrical. Speech and thought pattern appear to be normal. The patient I believe had received pain medicine, hence drifts off to sleep and not focusing. We will need to watch his mentation. LYMPHATICS: No enlarged lymph nodes in the supraclavicular, cervical, axillary or inguinal region. ABDOMEN: Soft. No masses, nontender. EXTREMITIES: Without clubbing, cyanosis or edema. ASSESSMENT AND PLAN: 1. Sickle cell crisis and pain. I have talked with Dr. Kovacs about possibly initiation of antibiotics. Given a questionable chest x-ray with prominent changes. I do not think this represents acute chest syndrome at this time, but we will need to watch carefully. We will arrange for transfusion. His hemoglobin is in the 6 range. We will also restart folic acid. 2. Interstitial changes on chest x-ray. Defer antibiotics to his doctors. We will watch hemoglobin, O2 sat. 3. Maintenance. We will probably add prophylactic Lovenox dosing. 4. Pain. Continue opiates as needed. We will follow. <ELECTRONICALLY SIGNED> By: Arturo Canales MD 03/17/20 0821 0828 0947 Arturo Canales MD /nt
[2020-03-17 08:40] LABS: CORRECTED WBC 13.9 thou/uL (4.0-11.0); NUCLEATED RBCS 84 /100WBC
[2020-03-17 08:41] LABS: ABSOLUTE NEUTROPHILS 8.3 thou/uL (1.4-8.2)
[2020-03-17 08:42] LABS: METAMYELOCYTES 2 %
[2020-03-17 08:44] LABS: POLYCHROMASIA OCCASIONAL
[2020-03-17 08:45] LABS: OVALOCYTES FEW
[2020-03-17 08:46] LABS: ANISOCYTOSIS 2+
[2020-03-17 10:45] VITALS: BP 101/60; BP 99/61
--- NOTE | 2020-03-17 14:40 | NUR ---
PT IS RECIEVING BLOOD TODAY. IT IS ANTICPATED THAT PT WILL LIKELY BE ABLE TO RETURN HOME ONCE MEDICALLY STABLE WITH NO NEEDS. CM FOLLOWING INDICATED WITH DC PLANNING.
[2020-03-17 15:11] VITALS: BP 101/60
[2020-03-17 19:25] VITALS: BP 108/61
[2020-03-17 20:43] LABS: HEMOGLOBIN 6.2 gm/dL (14.0-18.0)
[2020-03-18 03:45] VITALS: BP 106/62
[2020-03-18 04:05] VITALS: BP 106/62; BP 112/64
[2020-03-18 06:02] VITALS: BP 106/62; BP 109/68; BP 112/64
[2020-03-18 07:57] VITALS: BP 110/70
[2020-03-18 12:02] LABS: HEMATOCRIT 22.8 % (42.0-52.0); MCH 31.4 pg (26.0-34.0); MCHC 35.3 g/dL (28.0-37.0); OBSERVED RETIC COUNT 7.88 % (0.6-2.6); PLATELET COUNT 209 thou/uL (150-400); RBC 2.56 mil/uL (4.50-6.00); RDW 18.3 % (10.5-14.5)
[2020-03-18 12:13] LABS: % SATURATION 28 % (20-39); IRON 34 ug/dL (65-175); TIBC 120 ug/dL (250-450)
[2020-03-18 12:24] LABS: ALBUMIN 2.7 g/dL (3.4-5.0); CALCIUM 8.6 mg/dL (8.5-10.1); CREATININE 0.9 mg/dL (0.7-1.3); TOTAL BILIRUBIN 2.8 mg/dL (0.2-1.0); TOTAL PROTEIN 6.3 g/dL (6.4-8.2)
[2020-03-18 12:27] LABS: POTASSIUM 2.8 mmol/L (3.5-5.1)
[2020-03-18 13:30] LABS: FOLIC ACID 37.1 ng/mL (8.6-58.9)
[2020-03-18 13:50] LABS: ANISOCYTOSIS 2+; METAMYELOCYTES 1 %
[2020-03-18 13:51] LABS: MACROCYTES 1+; OVALOCYTES 1+; POLYCHROMASIA 1+
[2020-03-18 13:52] LABS: POIKILOCYTOSIS 1+
[2020-03-18 13:54] LABS: SCHISTOCYTES OCCASIONAL
--- NOTE | 2020-03-18 15:48 | NUR ---
Assumed pt care at 7am.Pt left for abdominal us early this shift and returned one hour later.Assessment completed.vss.Pt wanted dilaudid ivp .Dr Lombardi notified,order noted.Potassium added to iv due to low k+ in today's lab.Pt in bed sleeping on and off after pain shot given. Will continue to monitor.
[2020-03-18 20:00] VITALS: BP 122/75
--- NOTE | 2020-03-19 02:28 | NUR ---
ASSUMED CARE OF PT AT 1900. PT APPEARS TO BE VERY WITHDRAWN FROM ANY TYPE OF COMMUNICATING. DOES ASK FOR PAIN MEDICATION, AND DRINKS BUT DOES NOT ELABORATE TO DISCUSSIONS. PT C/O PAIN. PRN PAIN MEDICATION GIVEN. ROOM AIR. UP SBA TO THE BR BUT CHOOSES TO USE THE URINAL AT THE BEDSIDE. TEMPERATURE ELEVATED. TYLENOL GIVEN DIRECTED. AT THIS TIME PT IS AFEBRILE AND IS CURRENTLY LYING IN HIS BED AND APPEARS TO BE SLEEPING. FALL PRECAUTIONS ARE IN PLACE, CALL LIGHT IS WITHIN REACH. WILL CONTINUE TO MONITOR.
[2020-03-19] MEDS ORDERED: CLARITIN10 M3 (06:26)
[2020-03-19] MEDS ORDERED: INBRIJA42 M1 (06:26)
[2020-03-19] MEDS ORDERED: PRILOSEC OTC20 MG (06:27)
[2020-03-19] MEDS ORDERED: BAYER CHEWABLE81 MG (06:27)
[2020-03-19 08:23] VITALS: BP 101/64
[2020-03-19 18:04] VITALS: BP 115/60
[2020-03-19 19:39] VITALS: BP 91/57
--- NOTE | 2020-03-19 19:49 | NUR ---
Assumed pt care at 7am.Pt in and out of bed to br with sba.Assessment completed.vss but elevated temp noted.Tylenol po given with partial relief. Dr Bryce Dominguez here,order noted.H1n1 resp. viral collected and sent to lab.Dilaudid ivp given with partial relief.Fall bundle in place for pt safety.Pt has poor appetite,family brought food and drinks from outside.Will continue to monitor.
--- NOTE | 2020-03-20 00:56 | NUR ---
ASSUMED CARE OF PT AT 1900. PT IS A/O X4 AND UP SBA TO THE BR. CHOOSES TO USE URINAL AT THE BEDSIDE. C/O PAIN IN KNEES, BACK AND GENERALIZED. PRN PAIN MEDICATION GIVEN DIRECTED. TEMPERATURE ELEVATED AT START OF SHIFT. PRN TYLENOL GIVEN. FALL PRECAUTIONS ARE IN PLACE, CALL LIGHT IS WITHIN REACH. WILL CONTINUE TO MONITOR.
[2020-03-20 03:37] VITALS: BP 101/63
--- NOTE | 2020-03-20 05:10 | HC ---
[facility] [address] [place] [address] CONSULTATION Name: ASAF RAMOS Room #: 459-P ADM IN M.R.#: [id number] Admission: 03/13/20 Attend Phys: Randy Rutledge MD Discharge: Date of : 94 Report #: [id number] THIS REPORT FOR: cc: LENCHO - Valentina family physician/PCP LENCHO - Valentina family physician/PCP Miguel Wu MD ~ CC: [facility] physician/PCP Randy Rutledge DATE OF SERVICE: 03/19/2020 INFECTIOUS DISEASE CONSULTATION ATTENDING PHYSICIAN: Dr. Rutledge REASON FOR EVALUATION: Fever in the setting of sickle cell anemia crisis. HISTORY OF PRESENT ILLNESS: Chart reviewed, patient examined. This is a 24-year-old with known sickle cell anemia, who has had previous history of crisis, presented on the with fevers, generalized pain in particular lower extremities, was evaluated and ruled out for COVID-19 infection. He has persistent fevers. He denies significant pulmonary or gastrointestinal related complaints, although he has a diminished appetite. He denies any particular exposure history. Evaluation including urinalysis was unrevealing. He was empirically started on therapy with Zosyn. ALLERGIES: Listed to HALDOL and MORPHINE. CURRENT MEDICATIONS: Include dronabinol, pantoprazole, hydromorphone, Zosyn, folic acid, oxycodone. PAST MEDICAL HISTORY: Notable for the sickle cell anemia. SOCIAL HISTORY: Nonsmoker, no ethanol, no illicit drug use. FAMILY HISTORY: Noncontributory. REVIEW OF SYSTEMS: Otherwise, unremarkable 10-point review of systems. PHYSICAL EXAMINATION: GENERAL: He has got a flat affect. He does respond. He is not overtly distressed ____, appears uncomfortable. VITAL SIGNS: Temperature 102.4, pulse 109, respirations 16, blood pressure 122/75, saturation 96% on room air. SKIN: Warm, dry, no rashes. NECK: Supple. [facility] [address] [place] [address] CONSULTATION Name: ASAF RAMOS Room #: 459-[facility] IN M.R.#: [id number] Admission: 03/13/20 Attend Phys: Randy Rutledge MD Discharge: Date of : 94 Report #: [id number] LUNGS: Generally clear to auscultation bilaterally. HEART: Regular, tachycardic. I do not appreciate a murmur. ABDOMEN: Soft, no apparent peritoneal signs. EXTREMITIES: Bilateral lower extremities, no synovitis. I do not appreciate any rashes. GENITOURINARY: Deferred. RECTAL: Deferred. LABORATORY DATA: From yesterday, CBC: White count 12.0, H and H 8.0 and 22.8, platelets of 209, ____ bands. Noted sickle cells, peripheral smear. Ferritin elevated at 4437, folate at 37.1. Vitamin B12 is 381. Electrolytes: Sodium 138, potassium 2.8, chloride 103, bicarbonate 29, anion gap of 6, BUN and creatinine 6 and 0.9, glucose 128. SGOT of 103, ALT of 92. Total bilirubin of 2.8, albumin of 2.7, estimated GFR of 125. Blood cultures collected on 2 separate occasions are sterile thus far, most recently from the . Abdominal ultrasound showed cholelithiasis without evidence of tenderness. Mild hepatomegaly and normal portal vein ____. Spleen is slightly decreased in size. Coronavirus x 3 is negative. ASSESSMENT AND PLAN: Febrile illness and the patient with sickle cell anemia. We will repeat some diagnostic testing. It may all be due to the sickle cell related immune system response. At this point, we would continue piperacillin and tazobactam. We will await most recent cultures and treat symptoms as required and pursue any new signs or symptoms. <ELECTRONICALLY SIGNED> By: Miguel Wu MD 03/20/20 0510 0822 0901 Miguel Wu MD /nt
[2020-03-20 08:00] VITALS: BP 101/60
[2020-03-20 20:05] VITALS: BP 113/63
--- NOTE | 2020-03-21 05:18 | NUR ---
ASSUMED PT CARE AROUND 1930. AXOX4. CALL FOR ASST. IV REPLACED TO LFA. NO S/S ACUTE DISTRESS NOTED OR REPORTED AT THIS TIME. WILL CONT TO MONITOR FOR ANY CHANGES IN CONDITION.
[2020-03-21 05:35] LABS: ABSOLUTE RETIC COUNT 0.2843 10^6/uL; HEMATOCRIT 24.7 % (42.0-52.0); MCH 29.1 pg (26.0-34.0); MCHC 32.5 g/dL (28.0-37.0); MCV 89.6 fL (80.0-100.0); OBSERVED RETIC COUNT 10.31 % (0.6-2.6); RBC 2.76 mil/uL (4.50-6.00); RDW 18.5 % (10.5-14.5); WBC 12.8 thou/uL (4.0-11.0)
[2020-03-21 05:54] LABS: PLATELET COUNT 522 thou/uL (150-400)
[2020-03-21 06:01] LABS: ALBUMIN 2.9 g/dL (3.4-5.0); CALCIUM 9.7 mg/dL (8.5-10.1); CREATININE 0.9 mg/dL (0.7-1.3); POTASSIUM 4.5 mmol/L (3.5-5.1); TOTAL BILIRUBIN 1.2 mg/dL (0.2-1.0); TOTAL PROTEIN 7.4 g/dL (6.4-8.2)
[2020-03-21 07:41] VITALS: BP 108/73
[2020-03-21 09:57] LABS: ABSOLUTE NEUTROPHILS 5.1 thou/uL (1.4-8.2); ANISOCYTOSIS 2+; CORRECTED WBC 9.7 thou/uL (4.0-11.0); METAMYELOCYTES 1 %; NUCLEATED RBCS 32 /100WBC
[2020-03-21 09:58] LABS: POLYCHROMASIA 1+
[2020-03-21] MEDS ORDERED: PROTONIX 20 MG20 M1 PO (10:02)
[2020-03-21] MEDS ORDERED: VOLTAREN100 GM TOP (10:02)
[2020-03-21 15:25] VITALS: BP 85/53
[2020-03-21 16:08] VITALS: BP 85/53
--- NOTE | 2020-03-21 16:10 | NUR ---
CARE TEAM INDICATED THAT PT IS MEDICALLY STABLE TO DC THIS DAY. PT TO DC BACK TO [facility] WITH SIG OTHER. PT WAS PROVIDED WITH Payment plugin [facility] PACKET AND WAS ALSO ADVISED TO FOLLOW UP WITH DISPATCHER SHIP PILOT JENNY LEE AT [facility] [facility]. PT GIVEN DR. SEJAL HARRIS'S PHONE NUMBER FOR POSSIBLE FOLLOW UP CARES UPON DC. NO OTHER CM INTERVENTION INDICATED. CASE CLOSED.
[2020-03-21] MEDS ORDERED: DOXYCYCLINE HY100 M3 PO (16:11)
[2020-03-21 18:06] LABS: HAV IgM AB (ANTI-HAV IgM) Negative (Negative); HEPATITIS B SURFACE AG Negative (Negative); HEPATITIS C VIRUS AB <0.1 (0.0-0.9); HIV ANTIBODY Non Reactive (Non Reactive)
--- NOTE | 2020-03-21 19:46 | NUR ---
ASSUMED PT CARE THIS AM. PT VITAL SIGNS STABLE, A&OX4. PT PLEASANT, COOPERATIVE WITH STAFF. CALLED WHEN APPROPRAITE. IV PATENT. pT UP TO BATHROOM. LEG PAIN RESPONSIVE TO MEDICATION GIVEN. INFORMATIONAL PACKET FROM DISASTER OR DAMAGE CONTROL SPECIALIST GIVEN TO PT AND SIGNIFICANT OTHER, DISCUSSED OPTIONS, ADDRESSED DISASTER OR DAMAGE CONTROL SPECIALIST TO SIGNIFICANT OTHER WITH CONCERNS IN REGARDS TO DISCHARGE ORDERS. ISSUES WITH [place] CONSULT DISCUSSED WITH DISASTER OR DAMAGE CONTROL SPECIALIST, OTHER ALTERNATIVES GIVEN TO DISASTER OR DAMAGE CONTROL SPECIALIST. REINFORCED IMPORTANCE OF PROCESS OF GETTING TX FOR SICKLE CELL. UPON DISCHARGE, PT REPORTED HE WAS MISSING, JOGGERS, SOCKS, SLIDES. CALLED 4S AND WAS INSTRUCTED TO CALL BACK TOMORROW MORNING ABOUT BELONGINGS, 3W CALLED AND REPORTED NO BELONGINGS WERE TAKEN TO UNIT. PT WILL COME TOMORROW TO TRY AND GET CLOTHING IF FOUND. TO WRITE A DOCTORS NOTE FOR PATIENTS WORKPLACE, WILL ASSISTANT CORPORATE CONTROLLER TOMORROW.
== END 2020-03-21 19:30 | disposition home or self-care (01) | DRG 812 ==
LOC: ER 02:45 → 4S 07:21 → 2N 07:34 → 4W 07:34 → 4S 07:56 → 3W 03-14 22:47 → 4W 03-15 16:10
PROVIDERS: Emergency Medicine; Hospitalist; Internal Medicine; Internal Medicine Hematology & Oncology; Nurse Practitioner Family; Specialist; ADMIT Internal Medicine; ATTEND Internal Medicine
PROC: 30233N1 Transfusion of Nonautologous Red Blood Cells into Peripheral Vein, Percutaneous Approach (ICD-10-PCS; principal; 2020-03-17)
DX: D57.00 Hb-SS disease with crisis, unspecified (principal); M87.851 Other osteonecrosis, right femur; M87.852 Other osteonecrosis, left femur; M54.9 Dorsalgia, unspecified; R50.9 Fever, unspecified; E87.6 Hypokalemia; F11.10 Opioid abuse, uncomplicated; Z20.828 Contact with and (suspected) exposure to other viral communicable diseases; Z79.899 Other long term (current) drug therapy; Z88.5 Allergy status to narcotic agent; Z88.8 Allergy status to other drugs, medicaments and biological substances
CPT/HCPCS: 10040; 10080; 10195

== ENCOUNTER 2020-04-07 16:12 | Emergency (ER) | payer OTHER ==
[~2020-04-07] VITALS: Ht 182.9 cm; Wt 65.3 kg
--- NOTE | ~2020-04-07 | EMS ---
[address] [address] EMS Patient Care Report Name: ASAF RAMOS Room #: PRE [facility]..#: [id number] Admission: Attend Phys: Discharge: Date of : 94 Report #: [id number] THIS REPORT FOR: //name// Report Transmitted: 04/07/2020 16:23 EMS Care Summary [place], [place]/[facility] Incident [id number] @ 04/07/2020 15:44 Incident Location [address] [place] [address] Patient ASAF RAMOS Male, 24 Years 1995 Patient Address [address] [place] [address] Patient History Sickle Cell Disease, Patient Allergies Morphine,Haldol, Patient Medications Oxycodone, Other, Tizanidine, Chief Complaint SICKLE CELL PAIN Disposition Transported No Lights/[place] Dispatch Reason Sick Person Transported To [facility] Narrative DISPATCHED TO A SICK. ARRIVED ON SCENE OF HOTEL BUILDING TO FIND MALE PATIENT SEATED ON THE SIDE STEPS WAITING FOR AMBULANCE. HE SAID HE HAS HAD PAIN INVOLVING HIS SICKLE CELL FOR A LITTLE OVER A WEEK. THE PAIN IS LOCATED ALL THROUGHOUT HIS BACK AND IN BOTH OF HIS LEGS. PATIENT SAID HE DOES TAKE [address] [address] EMS Patient Care Report Name: ASAF RAMOS Room #: PRE [facility] [place]#: [id number] Admission: Attend Phys: Discharge: Date of : 94 Report #: [id number] MEDICATIONS FOR THIS BUT THEY HAVE NOT SEEMED TO BE HELPING. HE WAS ASSISTED IN WALKING INTO THE AMBULANCE, SEATED ON THE BENCH, SECURED WITH SEATBELTS, AND HIS VITALS WERE OBTAINED. PATIENT EAS TRANSPORTED TO THE HOSPITAL WITH VITALS MONITORED ENROUTE. UPON ARRIVAL AT THE HOSPITAL PATIENT WAS ASSISTED OUT OF THE AMBULANCE AND HE WALKED INTO THE ED. HE WAS SEATED ON THE HOSPITAL BED AND PATIENT CARE WAS TURNED OVER TO ED NURSING STAFF. Initial Vitals @15:59P: 77,BP: 141/79,CO: 3,SpO2: 99, @16:04P: 78,R: 18,BP: 103/71,Pain: 6/10,GCS: 15,CO: 0,SpO2: 100,Revised Trauma: 12, @15:54P: 77,R: 18,BP: 106/70,Pain: 6/10,GCS: 15,SpO2: 100,Revised Trauma: 12, Assessments @15:54MENTAL:Person Oriented,Time Oriented,Event Oriented,Place Oriented,SKIN:HEENT:Head/Face: No Abnormalities,Neck/Airway: No Abnormalities,LUNG SOUNDS:General: No Abnormalities,Left Upper: No Abnormalities,Right Upper: No Abnormalities,Left Lower: No Abnormalities,Right Lower: No Abnormalities,ABDOMEN:General: No Abnormalities,Left Upper: No Abnormalities,Right Upper: No Abnormalities,Left Lower: No Abnormalities,Right Lower: No Abnormalities,PELVIS//GI:No Abnormalities,EXTREMITIES:Left Leg: Other,Right Leg: Other,Capillary Refill: Right Upper: < 2 Sec,Left Arm: No Abnormalities,Right Arm: No Abnormalities,PULSE:Radial: 2+ Normal,NEURO:No Abnormalities, Impression Pain (Non-Traumatic) Procedures @15:54ALS AssessmentResponse: UnchangedSucceeded Timeline 15:42,Call Received 15:42,Dispatch Notified 15:44,Dispatched 15:44,En Route 15:53,On Scene 15:54,At Patient 15:54,ALS Assessment,Response: UnchangedSucceeded, 15:54,BP: 106/70 M,PULSE: 77,RR: 18 R,SPO2: 100 Ox,ETCO2: ,BG: ,PAIN: 6,GCS: 15, 15:56,Depart Scene 15:59,BP: 141/79 M,PULSE: 77,RR: R,SPO2: 99 Ox,ETCO2: ,BG: ,PAIN: ,GCS: , 16:04,BP: 103/71 M,PULSE: 78,RR: 18 R,SPO2: 100 Ox,ETCO2: ,BG: ,PAIN: 6,GCS: 15, 16:07,At Destination [address] [address] EMS Patient Care Report Name: ASAF RAMOS Room #: PRE M.R.#: [id number] Admission: Attend Phys: Discharge: Date of : 94 Report #: [id number] 16:17,Call Closed Disclaimer v1.1 Copyright 2020 [employer] This EMS Care Summary contains data elements from the applicable legal record (which may be displayed differently). It is designed to provide pertinent information for the following purposes: continuity of care, clinical quality, and state data reporting. The complete legal record is available to ED staff and administrators of the receiving hospital in [facility]'s Patient Tracker. All data is provided "as is."
[~2020-04-07 16:12] MED LIST changes: +BAYER CHEWABLE81 MG; +CLARITIN10 M3; +DOXYCYCLINE HY100 M3 PO; +INBRIJA42 M1; +PRILOSEC OTC20 MG; +PROTONIX 20 MG20 M1 PO; +VOLTAREN100 GM TOP
[2020-04-07 17:17] LABS: HEMOGLOBIN 9.1 gm/dL (14.0-18.0); MCH 28.8 pg (26.0-34.0); MCHC 32.6 g/dL (28.0-37.0); MCV 88.4 fL (80.0-100.0); PLATELET COUNT 423 thou/uL (150-400); RBC 3.16 mil/uL (4.50-6.00); WBC 7.6 thou/uL (4.0-11.0)
[2020-04-07 17:24] LABS: ABSOLUTE RETIC COUNT 0.1386 10^6/uL; OBSERVED RETIC COUNT 4.35 % (0.6-2.6)
[2020-04-07 17:28] LABS: CREATININE 0.7 mg/dL (0.7-1.3)
[2020-04-07 17:34] LABS: ALBUMIN 3.4 g/dL (3.4-5.0); TOTAL BILIRUBIN 0.7 mg/dL (0.2-1.0); TOTAL PROTEIN 7.3 g/dL (6.4-8.2)
[2020-04-07 17:50] LABS: ABSOLUTE NEUTROPHILS 4.1 thou/uL (1.4-8.2); ANISOCYTOSIS 2+
[2020-04-07 17:51] LABS: HYPOCHROMASIA SLIGHT; TARGET CELLS 2+
[2020-04-07 19:17] LABS: URINE BILIRUBIN NEGATIVE (Negative); URINE BLOOD NEGATIVE (Negative); URINE CLARITY CLEAR; URINE COLOR YELLOW; URINE GLUCOSE-RANDOM* NEGATIVE (Negative); URINE KETONES NEGATIVE (Negative); URINE LEUKOCYTES-REFLEX NEGATIVE (Negative); URINE NITRITE-REFLEX NEGATIVE (Negative); URINE PROTEIN (DIPSTICK) NEGATIVE (Negative); URINE SPECIFIC GRAVITY 1.015 (1.005-1.035); URINE UROBILINOGEN 0.2 E.U./dl (0.2-1.0)
[2020-04-07 19:25] LABS: AMP/METHAMP Negative (Negative); BARBITURATES Negative (Negative); BENZODIAZEPINES Negative (Negative); COCAINE Negative (Negative); METHADONE Negative (Negative); OPIATES Negative (Negative); PCP Negative (Negative)
[2020-04-07 20:56] VITALS: BP 101/63
--- NOTE | 2020-04-08 07:05 | EKG ---
[facility] [place] [address] ELECTROCARDIOGRAM REPORT Name: ASAF RAMOS Room #: DEP [facility]#: [id number] Admission: 04/07/20 Attend Phys: Discharge: 04/07/20 Date of : 94 Report #: [id number] THIS REPORT FOR: cc: LENCHO [place] family physician/PCP LENCHO [place] family physician/PCP Elkin Lux MD [facility] ~ THIS REPORT FOR: //name// [facility] ED Test Date: 2020-04-07 Test Time: 17:47:12 Pat Name: ASAF RAMOS Department: Room: Gender: Emt: : 1995 Requested By: Farzad Arteaga Order Number: [id number] MD: Elkin Lux Measurements Intervals [place] Rate: 71 P: 49 MD: 159 QRS: 27 QRSD: 88 T: 23 QT: 411 QTc: 447 Interpretive Statements Sinus rhythm Compared to ECG 02/02/2020 03:07:18 ST (T wave) deviation no longer present Electronically Signed On 04-08-2020 7:05:48 CDT by Elkin Lux [email or web address] <ELECTRONICALLY SIGNED> By: Elkin Lux MD, FACC 04/08/20 0705 1747 174 Elkin Lux MD, FAC /EPI
== END 2020-04-07 20:58 | disposition home or self-care (01) ==
LOC: ER 16:12
PROVIDERS: Emergency Medicine
DX: D57.80 Other sickle-cell disorders without crisis (principal); Z79.899 Other long term (current) drug therapy; Z88.8 Allergy status to other drugs, medicaments and biological substances; Z91.018 Allergy to other foods

== ENCOUNTER 2020-04-16 11:48 | Emergency (ER) | payer OTHER ==
[~2020-04-16] VITALS: Ht 180.3 cm; Wt 70.1 kg
[2020-04-16 13:09] LABS: ABSOLUTE RETIC COUNT 0.1526 10^6/uL; HEMOGLOBIN 9.3 gm/dL (14.0-18.0); MCV 87.9 fL (80.0-100.0); OBSERVED RETIC COUNT 4.78 % (0.6-2.6); PLATELET COUNT 286 thou/uL (150-400); RBC 3.19 mil/uL (4.50-6.00); RDW 21.6 % (10.5-14.5); WBC 10.1 thou/uL (4.0-11.0)
[2020-04-16 13:12] LABS: CALCIUM 9.1 mg/dL (8.5-10.1); CREATININE 0.9 mg/dL (0.7-1.3); POTASSIUM 3.8 mmol/L (3.5-5.1)
[2020-04-16 13:18] LABS: ALBUMIN 3.7 g/dL (3.4-5.0); TOTAL BILIRUBIN 1.1 mg/dL (0.2-1.0); TOTAL PROTEIN 6.9 g/dL (6.4-8.2)
[2020-04-16 14:21] LABS: URINE BILIRUBIN NEGATIVE (Negative); URINE BLOOD NEGATIVE (Negative); URINE CLARITY CLEAR; URINE COLOR YELLOW; URINE GLUCOSE-RANDOM* NEGATIVE (Negative); URINE KETONES NEGATIVE (Negative); URINE LEUKOCYTES-REFLEX NEGATIVE (Negative); URINE NITRITE-REFLEX NEGATIVE (Negative); URINE PROTEIN (DIPSTICK) NEGATIVE (Negative); URINE SPECIFIC GRAVITY 1.015 (1.005-1.035); URINE UROBILINOGEN 0.2 E.U./dl (0.2-1.0)
[2020-04-16 14:29] LABS: AMP/METHAMP Negative (Negative); BARBITURATES Negative (Negative); BENZODIAZEPINES Negative (Negative); COCAINE Negative (Negative); METHADONE Negative (Negative); OPIATES Negative (Negative); PCP Negative (Negative)
[2020-04-16 14:57] LABS: ABSOLUTE NEUTROPHILS 6.6 thou/uL (1.4-8.2)
[2020-04-16 14:58] LABS: TARGET CELLS 3+
[2020-04-16 14:59] LABS: ANISOCYTOSIS 2+
[2020-04-16 16:46] VITALS: BP 118/62
== END 2020-04-16 16:45 | disposition home or self-care (01) ==
LOC: ER 11:48
PROVIDERS: Physician Assistant
DX: D57.00 Hb-SS disease with crisis, unspecified (principal); G89.29 Other chronic pain; Z79.899 Other long term (current) drug therapy; Z88.8 Allergy status to other drugs, medicaments and biological substances; Z88.5 Allergy status to narcotic agent; Z91.018 Allergy to other foods

== ENCOUNTER 2021-01-03 14:22 | Emergency (ER) | payer OTHER ==
[~2021-01-03] VITALS: Ht 182.9 cm; Wt 70.3 kg
[2021-01-03 14:59] LABS: ABSOLUTE RETIC COUNT 0.2695 10^6/uL; HEMATOCRIT 25.4 % (42.0-52.0); HEMOGLOBIN 8.6 gm/dL (14.0-18.0); MCHC 33.8 g/dL (28.0-37.0); MCV 88.8 fL (80.0-100.0); OBSERVED RETIC COUNT 9.43 % (0.6-2.6); PLATELET COUNT 565 thou/uL (150-400); RBC 2.86 mil/uL (4.50-6.00); RDW 20.5 % (10.5-14.5); WBC 10.8 thou/uL (4.0-11.0)
[2021-01-03 15:06] LABS: CALCIUM 8.8 mg/dL (8.5-10.1); CREATININE 1.1 mg/dL (0.7-1.3); POTASSIUM 3.5 mmol/L (3.5-5.1)
[2021-01-03 15:19] LABS: ALBUMIN 4.1 g/dL (3.4-5.0); TOTAL BILIRUBIN 1.7 mg/dL (0.2-1.0); TOTAL PROTEIN 7.2 g/dL (6.4-8.2)
[2021-01-03 15:54] LABS: ABSOLUTE NEUTROPHILS 6.9 thou/uL (1.4-8.2); ANISOCYTOSIS 2+; MACROCYTES SLIGHT; NUCLEATED RBCS 2 /100WBC; POLYCHROMASIA 2+
[2021-01-03 15:57] LABS: TEARDROPS OCCASIONAL
[2021-01-03 17:03] VITALS: BP 94/49
== END 2021-01-03 17:04 | disposition home or self-care (01) ==
LOC: ER 14:22
PROVIDERS: Physician Assistant
DX: D57.1 Sickle-cell disease without crisis (principal); Z79.899 Other long term (current) drug therapy; Z88.5 Allergy status to narcotic agent

== ENCOUNTER 2021-01-16 12:00 | Emergency (ER) | payer OTHER ==
[~2021-01-16] VITALS: Ht 182.9 cm; Wt 70.3 kg
[2021-01-16 14:20] LABS: ABSOLUTE NEUTROPHILS 4.5 thou/uL (1.4-8.2); ABSOLUTE RETIC COUNT 0.2871 10^6/uL; BASOPHILS 1.2 % (0.0-2.0); EOSINOPHILS 2.3 % (0.0-3.0); HEMATOCRIT 23.7 % (42.0-52.0); HEMOGLOBIN 8.2 gm/dL (14.0-18.0); LYMPHOCYTES 33.7 % (24.0-44.0); MCHC 34.8 g/dL (28.0-37.0); MCV 86.2 fL (80.0-100.0); MONOCYTES 13.1 % (1.0-8.0); OBSERVED RETIC COUNT 10.45 % (0.6-2.6); PLATELET COUNT 412 thou/uL (150-400); POLYS 49.7 % (36.0-66.0); RBC 2.75 mil/uL (4.50-6.00); RDW 20.7 % (10.5-14.5); WBC 9.1 thou/uL (4.0-11.0)
[2021-01-16 14:25] LABS: CALCIUM 8.8 mg/dL (8.5-10.1); POTASSIUM 3.9 mmol/L (3.5-5.1)
[2021-01-16 14:32] LABS: ALBUMIN 4.1 g/dL (3.4-5.0); TOTAL BILIRUBIN 1.8 mg/dL (0.2-1.0); TOTAL PROTEIN 7.2 g/dL (6.4-8.2)
[2021-01-16 17:16] VITALS: BP 102/63
== END 2021-01-16 17:17 | disposition home or self-care (01) ==
LOC: ER 12:00
PROVIDERS: Physician Assistant
DX: D57.00 Hb-SS disease with crisis, unspecified (principal); M54.5 Low back pain; Z79.899 Other long term (current) drug therapy; Z88.4 Allergy status to anesthetic agent; Z88.6 Allergy status to analgesic agent; Z88.8 Allergy status to other drugs, medicaments and biological substances; Z91.02 Food additives allergy status

== ENCOUNTER 2021-01-27 17:18 | Emergency (ER) | payer OTHER ==
[~2021-01-27] VITALS: Ht 182.9 cm; Wt 70.3 kg
[2021-01-27 19:40] VITALS: BP 120/77
== END 2021-01-27 19:40 | disposition home or self-care (01) ==
LOC: ER 17:18
DX: D57.00 Hb-SS disease with crisis, unspecified (principal); Z79.2 Long term (current) use of antibiotics; Z79.899 Other long term (current) drug therapy; Z88.6 Allergy status to analgesic agent; Z88.5 Allergy status to narcotic agent; Z91.018 Allergy to other foods

== ENCOUNTER 2021-02-03 10:08 | Emergency (ER) | payer OTHER ==
[~2021-02-03] VITALS: Ht 182.9 cm; Wt 70.3 kg
--- NOTE | ~2021-02-03 | EMS ---
[address] [address] EMS Patient Care Report Name: ASAF RAMOS Room #: DEP [facility]#: [id number] Admission: 02/03/21 Attend Phys: Discharge: 02/03/21 Date of : 94 Report #: [id number] THIS REPORT FOR: //name// Report Transmitted: 02/04/2021 13:33 EMS Care Summary [place], [place]/[facility] Incident [id number] @ 02/03/2021 09:48 Incident Location [address] [place] [address] Patient ASAF RAMOS Male, 25 Years 1995 Patient Address [address] [place] [address] Patient History Sickle Cell Disease, Patient Allergies Morphine, Patient Medications Oxycodone, Chief Complaint Sickle cell crisis Disposition Transported No Lights/[place] Dispatch Reason Sick Person Transported To [facility] Narrative Arrived on scene to meet P42 standing with our patient on the sidewalk in front of the building. Patient stated he had been experiencing pain from a sickle cell crisis lasting two days. Patient stated he had pain "everywhere." Patient [address] [address] EMS Patient Care Report Name: ASAF RAMOS JR Room #: DEP [place]#: [id number] Admission: 02/03/21 Attend Phys: Discharge: 02/03/21 Date of : 94 Report #: [id number] denied any soa, n/v, or diarrhea. Patient ambulatory upon our arrival and assisted to the ambulance. Vital signs obtained and patient transported and transferred to receiving facility without change in patient condition. Initial Vitals @09:56P: 81,R: 14,BP: 119/70,Pain: 10/10,GCS: 15,CO: 2,SpO2: 94,Revised Trauma: 12, @09:54P: 89,R: 14,BP: 106/72,Pain: 10/10,GCS: 15,SpO2: 100,Revised Trauma: 12, Assessments @09:54MENTAL:No Abnormalities,SKIN:No Abnormalities,HEENT:Head/Face: No Abnormalities,Eyes: No Abnormalities,Neck/Airway: No Abnormalities,LUNG SOUNDS:General: No Abnormalities,Left Upper: No Abnormalities,Right Upper: No Abnormalities,Left Lower: No Abnormalities,Right Lower: No Abnormalities,ABDOMEN:General: No Abnormalities,Left Upper: No Abnormalities,Right Upper: No Abnormalities,Left Lower: No Abnormalities,Right Lower: No Abnormalities,PELVIS//GI:No Abnormalities,EXTREMITIES:Left Arm: No Abnormalities,Right Arm: No Abnormalities,Left Leg: No Abnormalities,Right Leg: No Abnormalities,PULSE:NEURO:No Abnormalities, Impression Sickle Cell Crisis Procedures @09:54ALS AssessmentResponse: UnchangedSucceeded Timeline 09:46,Call Received 09:46,Dispatch Notified 09:48,Dispatched 09:48,En Route 09:54,On Scene 09:54,At Patient 09:54,ALS Assessment,Response: UnchangedSucceeded, 09:54,BP: 106/72 M,PULSE: 89,RR: 14 R,SPO2: 100 Ox,ETCO2: ,BG: ,PAIN: 10,GCS: 15, 09:55,Depart Scene 09:56,BP: 119/70 M,PULSE: 81,RR: 14 R,SPO2: 94 Ox,ETCO2: ,BG: ,PAIN: 10,GCS: 15, 10:06,At Destination 10:15,Call Closed Disclaimer v1.1 Copyright 2020 [employer] This EMS Care Summary contains data elements from the applicable legal record [address] [address] EMS Patient Care Report Name: ASAF RAMOS [facility] [id number] Admission: 02/03/21 Attend Phys: Discharge: 02/03/21 Date of : 94 Report #: [id number] (which may be displayed differently). It is designed to provide pertinent information for the following purposes: continuity of care, clinical quality, and state data reporting. The complete legal record is available to ED staff and administrators of the receiving hospital in [email or web address]'s Patient Tracker. All data is provided "as is."
[2021-02-03 12:52] LABS: HEMATOCRIT 21.8 % (42.0-52.0); HEMOGLOBIN 7.7 gm/dL (14.0-18.0); MCH 30.4 pg (26.0-34.0); MCHC 35.3 g/dL (28.0-37.0); PLATELET COUNT 336 thou/uL (150-400); RBC 2.53 mil/uL (4.50-6.00); RDW 21.8 % (10.5-14.5); WBC 18.7 thou/uL (4.0-11.0)
[2021-02-03 12:54] LABS: ANION GAP 7 mmol/L (7-16); BUN 7 mg/dL (7-18); CHLORIDE 103 mmol/L (98-107); CO2 29 mmol/L (21-32); CREATININE 1.1 mg/dL (0.7-1.3); GLUCOSE 103 mg/dL (74-106); POTASSIUM 4.3 mmol/L (3.5-5.1); SODIUM 139 mmol/L (136-145)
[2021-02-03 13:04] LABS: ABSOLUTE RETIC COUNT 0.2922 10^6/uL; ALBUMIN 4.4 g/dL (3.4-5.0); OBSERVED RETIC COUNT 11.55 % (0.6-2.6); SGOT 50 U/L (15-37); SGPT 46 U/L (16-63); TOTAL BILIRUBIN 4.7 mg/dL (0.2-1.0); TOTAL PROTEIN 7.2 g/dL (6.4-8.2); TROPONIN-I <0.06 ng/mL (<0.06)
--- NOTE | 2021-02-03 13:48 | EKG ---
[address] [address] ELECTROCARDIOGRAM REPORT Name: ASAF RAMOS Room #: REG [facility]#: [id number] Admission: 02/03/21 Attend Phys: Discharge: Date of : 94 Report #: [id number] [facility] ED Test Date: 2021-02-03 Test Time: 12:06:17 Pat Name: ASAF RAMOS Department: Room: Gender: Clinical Operations Consultant: : 1995 Requested By: Xiomara Patel Order Number: [id number] MD: Braxton Cruz Measurements Intervals [place] Rate: 78 P: 55 PA: 157 QRS: 22 QRSD: 95 T: 13 QT: 409 QTc: 466 Interpretive Statements Sinus rhythm ST elev, probable normal early repol pattern Compared to ECG 04/07/2020 17:47:12 No significant change Electronically Signed On 02-03-2021 13:48:16 CDT by Braxton Cruz [email or web address] <ELECTRONICALLY SIGNED> By: Braxton Cruz MD 02/03/21 1348 1206 1206 Braxton Cruz MD /EPI
[2021-02-03 14:03] LABS: ABSOLUTE NEUTROPHILS 12.5 thou/uL (1.4-8.2)
[2021-02-03 14:04] LABS: MYELOCYTES 2 %; NUCLEATED RBCS 8 /100WBC
[2021-02-03 14:05] LABS: ANISOCYTOSIS 2+; POLYCHROMASIA 1+
[2021-02-03 14:06] LABS: HYPOCHROMASIA 2+
[2021-02-03 14:07] LABS: OVALOCYTES 1+; POIKILOCYTOSIS 1+
[2021-02-03 14:59] LABS: URINE BILIRUBIN NEGATIVE (Negative); URINE BLOOD NEGATIVE (Negative); URINE CLARITY CLEAR; URINE COLOR YELLOW; URINE GLUCOSE-RANDOM* NEGATIVE (Negative); URINE KETONES NEGATIVE (Negative); URINE LEUKOCYTES-REFLEX NEGATIVE (Negative); URINE PROTEIN (DIPSTICK) NEGATIVE (Negative); URINE SPECIFIC GRAVITY <= 1.005 (1.005-1.035); URINE UROBILINOGEN 0.2 E.U./dl (0.2-1.0)
[2021-02-03 15:00] LABS: URINE NITRITE-REFLEX POSITIVE (Negative)
[2021-02-03 15:55] LABS: SQUAMOUS 0-3 Few /LPF (0-3)
[2021-02-03 15:56] LABS: BACTERIA-REFLEX 1-9 Few /HPF (None Seen); URINE RBC 1-2 Rare /HPF (NONE SEEN); URINE WBC-REFLEX 0-5 Rare /HPF (0-5)
[2021-02-03] MEDS ORDERED: CEPHALEXIN500 MG PO (15:59)
[2021-02-03 16:05] VITALS: BP 112/70
== END 2021-02-03 16:06 | disposition home or self-care (01) ==
LOC: ER 10:08
PROVIDERS: Nurse Practitioner Family
DX: N39.0 Urinary tract infection, site not specified (principal); D57.811 Other sickle-cell disorders with acute chest syndrome; Z79.891 Long term (current) use of opiate analgesic; Z79.899 Other long term (current) drug therapy; Z88.5 Allergy status to narcotic agent; Z88.8 Allergy status to other drugs, medicaments and biological substances; Z91.018 Allergy to other foods

== ENCOUNTER 2021-02-24 13:00 | Emergency (ER) | payer OTHER ==
[~2021-02-24] VITALS: Ht 182.9 cm; Wt 70.3 kg
[~2021-02-24 13:00] MED LIST changes: +CEPHALEXIN500 MG PO
[2021-02-24 16:25] LABS: URINE BILIRUBIN NEGATIVE (Negative); URINE BLOOD TRACE (Negative); URINE CLARITY CLEAR; URINE COLOR YELLOW; URINE GLUCOSE-RANDOM* NEGATIVE (Negative); URINE KETONES NEGATIVE (Negative); URINE LEUKOCYTES-REFLEX NEGATIVE (Negative); URINE NITRITE-REFLEX NEGATIVE (Negative); URINE PROTEIN (DIPSTICK) NEGATIVE (Negative); URINE SPECIFIC GRAVITY 1.015 (1.005-1.035); URINE UROBILINOGEN 0.2 E.U./dl (0.2-1.0)
[2021-02-24 17:23] LABS: WBC 14.9 thou/uL (4.0-11.0)
[2021-02-24 17:25] LABS: HEMATOCRIT 22.8 % (42.0-52.0); HEMOGLOBIN 7.8 gm/dL (14.0-18.0); MCH 29.5 pg (26.0-34.0); MCHC 34.3 g/dL (28.0-37.0); MCV 85.9 fL (80.0-100.0); PLATELET COUNT 421 thou/uL (150-400); RBC 2.65 mil/uL (4.50-6.00); RDW 23.2 % (10.5-14.5)
[2021-02-24 17:31] LABS: CALCIUM 8.6 mg/dL (8.5-10.1); CREATININE 0.8 mg/dL (0.7-1.3); POTASSIUM 3.9 mmol/L (3.5-5.1)
[2021-02-24 17:37] LABS: ALBUMIN 3.5 g/dL (3.4-5.0); TOTAL BILIRUBIN 1.8 mg/dL (0.2-1.0); TOTAL PROTEIN 6.6 g/dL (6.4-8.2)
[2021-02-24 18:07] LABS: ABSOLUTE NEUTROPHILS 10.6 thou/uL (1.4-8.2); NUCLEATED RBCS 5 /100WBC
[2021-02-24 18:08] LABS: ANISOCYTOSIS 3+; PLATELET ESTIMATE INCREASED
[2021-02-24 18:09] LABS: POIKILOCYTOSIS 2+; SCHISTOCYTES 1+; TARGET CELLS 1+
[2021-02-24 18:53] VITALS: BP 97/55
--- NOTE | 2021-02-28 07:33 | EKG ---
[place] [address] [address] [facility] [facility] [place] [address] ELECTROCARDIOGRAM REPORT Name: ASAF RAMOS [id number] Admission: 02/24/21 Attend Phys: Discharge: 02/24/21 Date of : [birth year] Report #: [id number] [facility] ED Test Date: 2021-02-24 Test Time: 14:36:29 Pat Name: ASAF RAMOS Department: Room: Gender: Home Support Worker: : 1995 Requested By: Vick Mora Order Number: [id number] MD: Elkin Lux Measurements Intervals [place] Rate: 79 P: 27 UT: 154 QRS: 15 QRSD: 93 T: 11 QT: 384 QTc: 441 Interpretive Statements Sinus rhythm ST elev, probable normal early repol pattern Compared to ECG 02/03/2021 12:06:17 No significant changes Electronically Signed On 02-28-2021 7:32:49 CDT by Elkin Lux [email or web address] <ELECTRONICALLY SIGNED> By: Elkin Lux MD, [facility] 02/28/21 0732 1436 143 Elkin Lux MD, FACC /EPI
== END 2021-02-24 18:53 | disposition home or self-care (01) ==
LOC: ER 13:00
PROVIDERS: Emergency Medicine; Physician Assistant
DX: D57.00 Hb-SS disease with crisis, unspecified (principal); Z79.891 Long term (current) use of opiate analgesic; Z79.899 Other long term (current) drug therapy; Z88.5 Allergy status to narcotic agent; Z88.6 Allergy status to analgesic agent; Z88.8 Allergy status to other drugs, medicaments and biological substances; Z91.018 Allergy to other foods

== ENCOUNTER 2021-04-23 11:53 | Emergency (ER) | payer OTHER ==
[~2021-04-23] VITALS: Ht 182.9 cm; Wt 70.3 kg
[2021-04-23 12:15] LABS: HEMATOCRIT 26.1 % (42.0-52.0); HEMOGLOBIN 8.9 gm/dL (14.0-18.0); MCH 29.6 pg (26.0-34.0); MCHC 34.3 g/dL (28.0-37.0); MCV 86.5 fL (80.0-100.0); PLATELET COUNT 458 thou/uL (150-400); RBC 3.01 mil/uL (4.50-6.00); RDW 20.8 % (10.5-14.5); WBC 8.8 thou/uL (4.0-11.0)
[2021-04-23 12:34] LABS: ABSOLUTE NEUTROPHILS 4.6 thou/uL (1.4-8.2); ANISOCYTOSIS 2+
[2021-04-23 13:55] VITALS: BP 102/53
== END 2021-04-23 13:56 | disposition home or self-care (01) ==
LOC: ER 11:53
PROVIDERS: Emergency Medicine
DX: D57.1 Sickle-cell disease without crisis (principal); Z79.891 Long term (current) use of opiate analgesic; Z79.899 Other long term (current) drug therapy; Z88.6 Allergy status to analgesic agent; Z88.8 Allergy status to other drugs, medicaments and biological substances; Z88.5 Allergy status to narcotic agent; Z91.018 Allergy to other foods

== ENCOUNTER 2021-08-17 14:33 | Emergency (ER) | payer OTHER ==
[~2021-08-17] VITALS: Ht 182.9 cm; Wt 74.8 kg
[2021-08-17 15:27] LABS: ABSOLUTE NEUTROPHILS 5.2 thou/uL (1.4-8.2); BASOPHILS 0.7 % (0.0-2.0); HEMATOCRIT 24.5 % (42.0-52.0); HEMOGLOBIN 8.3 gm/dL (14.0-18.0); LYMPHOCYTES 39.4 % (24.0-44.0); MCHC 33.8 g/dL (28.0-37.0); MCV 85.7 fL (80.0-100.0); MONOCYTES 14.9 % (1.0-8.0); PLATELET COUNT 431 thou/uL (150-400); RBC 2.86 mil/uL (4.50-6.00); RDW 24.2 % (10.5-14.5); WBC 12.2 thou/uL (4.0-11.0)
[2021-08-17 15:29] LABS: CALCIUM 9.1 mg/dL (8.5-10.1); CREATININE 0.8 mg/dL (0.7-1.3)
[2021-08-17 15:31] LABS: ABSOLUTE RETIC COUNT 0.3227 10^6/uL; OBSERVED RETIC COUNT 11.21 % (0.6-2.6)
[2021-08-17 15:32] LABS: POTASSIUM 3.7 mmol/L (3.5-5.1)
[2021-08-17 15:35] LABS: ALBUMIN 3.9 g/dL (3.4-5.0)
[2021-08-17 15:52] LABS: ANISOCYTOSIS 2+
[2021-08-17 15:53] LABS: MICROCYTES 2+; PLATELET ESTIMATE NORMAL; POLYCHROMASIA SLIGHT
[2021-08-17 16:13] LABS: URINE BILIRUBIN NEGATIVE (Negative); URINE BLOOD NEGATIVE (Negative); URINE CLARITY CLEAR; URINE COLOR YELLOW; URINE GLUCOSE-RANDOM* NEGATIVE (Negative); URINE KETONES NEGATIVE (Negative); URINE LEUKOCYTES-REFLEX NEGATIVE (Negative); URINE NITRITE-REFLEX NEGATIVE (Negative); URINE PROTEIN (DIPSTICK) NEGATIVE (Negative); URINE UROBILINOGEN 0.2 E.U./dl (0.2-1.0)
[2021-08-17 17:12] VITALS: BP 107/65
== END 2021-08-17 17:29 | disposition home or self-care (01) ==
LOC: ER 14:33
PROVIDERS: Physician Assistant
DX: D57.00 Hb-SS disease with crisis, unspecified (principal); Z88.8 Allergy status to other drugs, medicaments and biological substances; Z88.6 Allergy status to analgesic agent